=== PATIENT | female | born 1995 | race Caucasian/White ===

== ENCOUNTER 2016-10-14 15:08 | Emergency (ER) | payer OTHER ==
[~2016-10-14] VITALS: Ht 154.9 cm; Wt 77.1 kg
[~2016-10-14 15:08] MED LIST: PRD20T PO
[2016-10-14] MEDS ORDERED: MONT10TA21 PO (15:41)
[2016-10-14] MEDS ORDERED: FLUT250D2 IH (15:41)
[2016-10-14 16:15] LABS: BASOPHILS % (AUTO) 0 % (0-10); EOSINOPHILS % (AUTO) 0 % (0-10); LYMPHOCYTES # (AUTO) 0.6 X 10^3 (1.0-4.0); LYMPHOCYTES % (AUTO) 5 % (12-44); MEAN CORPUSCULAR HEMOGLOBIN 29 PG (25-34); MEAN CORPUSCULAR HGB CONC 34 G/DL (32-36); MEAN CORPUSCULAR VOLUME 84 FL (80-99); MONOCYTES # (AUTO) 0.5 X 10^3 (0.0-1.0); MONOCYTES % (AUTO) 4 % (0-12); NEUTROPHILS # (AUTO) 11.1 X 10^3 (1.8-7.8); NEUTROPHILS % (AUTO) 91 % (42-75); PLATELET COUNT 317 10^3/uL (130-400); RED BLOOD COUNT 4.84 10^6/uL (4.35-5.85); RED CELL DISTRIBUTION WIDTH 12.4 % (10.0-14.5); WHITE BLOOD COUNT 12.2 10^3/uL (4.3-11.0)
[2016-10-14] MEDS ORDERED: NS IV 1000 ML 1,000 ML IV SCH (16:15)
[2016-10-14] MEDS ORDERED: PROMETHAZINE 25 MG (PHENERGAN) SUPP PR ONE ×2 (16:15→17:45)
[2016-10-14 16:28] LABS: ALANINE AMINOTRANSFERASE 27 U/L (0-55); ALBUMIN 4.6 G/DL (3.2-4.5); ANION GAP 12 MMOL/L (5-14); ASPARTATE AMINO TRANSFERASE 24 U/L (5-34); BILIRUBIN,TOTAL 0.5 MG/DL (0.1-1.0); BLOOD UREA NITROGEN 14 MG/DL (7-18); BUN/CREATININE RATIO 16; CALCIUM 9.6 MG/DL (8.5-10.1); CARBON DIOXIDE 23 MMOL/L (21-32); CHLORIDE 106 MMOL/L (98-107); CREATININE SERUM 0.88 MG/DL (0.60-1.30); GFR ESTIMATED > 60; GLUCOSE 102 MG/DL (70-105); POTASSIUM 3.9 MMOL/L (3.6-5.0); SODIUM 141 MMOL/L (135-145); TOTAL PROTEIN 8.2 G/DL (6.4-8.2)
[2016-10-14 16:42] LABS: BAND NEUTROPHILS 6 %; BASOPHILS % (MANUAL) 0 %; EOSINOPHILS % (MANUAL) 1 %; LYMPHOCYTES % (MANUAL) 0 %; NEUTROPHILS % (MANUAL) 89 %
[2016-10-14 16:58] LABS: BILIRUBIN,URINE NEGATIVE (NEGATIVE); KETONES,URINE 4+ (NEGATIVE); LEUKOCYTE ESTERASE ,URINE 2+ (NEGATIVE); NITRITE,URINE NEGATIVE (NEGATIVE); PH,URINE 8 (5-9); PROTEIN,URINE NEGATIVE (NEGATIVE); UROBILINOGEN,URINE NORMAL (NORMAL)
--- NOTE | 2016-10-14 16:59 | ED General ---
General Chief Complaint: Abdominal/GI Problems Stated Complaint: VOMITING Nursing Triage Note: pt ambulated to room. pt states she can't keep anything down, pt has thrown up X3 since 1100 today. Source of Information: Patient Exam Limitations: No Limitations History of Present Illness Time Seen by Provider: 16:57 Initial Comments The patient is a 89-year-old white female. She reports that she began vomiting at about 1100 hours and has vomited 8 or 9 times since then. She apparently called Dr. Lynch's office and was advised to come here for IV fluids. She reports to severe headaches with Zofran. Timing/Duration: 4-6 Hours Associated Systoms: Nausea/Vomiting Allergies and Home Medications Allergies Coded Allergies: amoxicillin (Verified Allergy, Unknown, 10/14/16) clavulanic acid (Verified Allergy, Unknown, 10/14/16) dimenhydrinate (Verified Allergy, Unknown, 10/14/16) ondansetron (Verified Allergy, Unknown, 10/14/16) sulfacetamide (Verified Allergy, Unknown, 10/14/16) Home Medications Fluticasone Propionate 250 Mcg Blst.w.dev, 250 MCG IH BID, (Reported) Montelukast Sodium 10 Mg Tablet, 10 MG PO, (Reported) Constitutional: see HPI EENTM: no symptoms reported Respiratory: no symptoms reported Cardiovascular: no symptoms reported Gastrointestinal: nausea, vomiting, other (cramping) : No Past Idwbcdd-Xugrzz-Pzukqo Hx Patient Social History Alcohol Use: Denies Use Recreational Drug Use: No Smoking Status: Never a Smoker 2nd Hand Smoke Exposure: No Recent Foreign Travel: No Contact w/Someone Who Travel: No Recent Infectious Disease Expo: No Recent Hopitalizations: No Ebola Symptoms: Denies Symptoms Listed Seasonal Allergies Seasonal Allergies: No Respiratory Respiratory Disorders: Asthma Physical Exam Vital Signs Vital Sign - Last 12Hours 10/14/16 15:30 Temp 99.9 Pulse 110 Resp 20 B/P (MAP) 134/72 Pulse Ox 99 O2 Delivery Room Air Capillary Refill : General Appearance: Mild Distress Eyes: Bilateral Eye Normal Inspection HEENT: Normal ENT Inspection Neck: Normal Inspection Respiratory: Chest Non Tender, Lungs Clear, Normal Breath Sounds, No Accessory Muscle Use, No Respiratory Distress Cardiovascular: Regular Rate, Rhythm, No Edema, No Gallop, No JVD, No Murmur, Normal Peripheral Pulses Gastrointestinal: Abnormal Bowel Sounds (decreased), Other (tympany) Extremity: Normal Capillary Refill, Normal Inspection, Normal Range of Motion, Non Tender, No Calf Tenderness, No Pedal Edema Neurologic/Psychiatric: Alert, Oriented x3, No Motor/Sensory Deficits, Normal Mood/Affect Skin: Normal Color, Warm/Dry Lymphatic: No Adenopathy Progress/Results/Core Measures Results/Orders Lab Results Laboratory Tests Test 10/14/16 15:48 10/14/16 16:46 Range/Units White Blood Count 12.2 H 4.3-11.0 10^3/uL Red Blood Count 4.84 4.35-5.85 10^6/uL Hemoglobin 14.0 11.5-16.0 G/DL Hematocrit 41 35-52 % Mean Corpuscular Volume 84 80-99 FL Mean Corpuscular Hemoglobin 29 25-34 PG Mean Corpuscular Hemoglobin Concent 34 32-36 G/DL Red Cell Distribution Width 12.4 10.0-14.5 % Platelet Count 317 130-400 10^3/uL Mean Platelet Volume 10.0 7.4-10.4 FL Neutrophils (%) (Auto) 91 H 42-75 % Lymphocytes (%) (Auto) 5 L 12-44 % Monocytes (%) (Auto) 4 0-12 % Eosinophils (%) (Auto) 0 0-10 % Basophils (%) (Auto) 0 0-10 % Neutrophils # (Auto) 11.1 H 1.8-7.8 X 10^3 Lymphocytes # (Auto) 0.6 L 1.0-4.0 X 10^3 Monocytes # (Auto) 0.5 0.0-1.0 X 10^3 Eosinophils # (Auto) 0.0 0.0-0.3 10^3/uL Basophils # (Auto) 0.0 0.0-0.1 10^3/uL Neutrophils % (Manual) 89 % Lymphocytes % (Manual) 0 % Monocytes % (Manual) 4 % Eosinophils % (Manual) 1 % Basophils % (Manual) 0 % Band Neutrophils 6 % Blood Morphology Comment NORMAL Sodium Level 141 135-145 MMOL/L Potassium Level 3.9 3.6-5.0 MMOL/L Chloride Level 106 98-107 MMOL/L Carbon Dioxide Level 23 21-32 MMOL/L Anion Gap 12 5-14 MMOL/L Blood Urea Nitrogen 14 7-18 MG/DL Creatinine 0.88 0.60-1.30 MG/DL Estimat Glomerular Filtration Rate > 60 BUN/Creatinine Ratio 16 Glucose Level 102 70-105 MG/DL Calcium Level 9.6 8.5-10.1 MG/DL Total Bilirubin 0.5 0.1-1.0 MG/DL Aspartate Amino Transf (AST/SGOT) 24 5-34 U/L Alanine Aminotransferase (ALT/SGPT) 27 0-55 U/L Alkaline Phosphatase 117 40-136 U/L Total Protein 8.2 6.4-8.2 G/DL Albumin 4.6 H 3.2-4.5 G/DL Serum Test, Qualitative NEGATIVE NEGATIVE Urine Color YELLOW Urine Clarity SLIGHTLY CLOUDY Urine pH 8 5-9 Urine Specific [place] 1.015 L 1.016-1.022 Urine Protein NEGATIVE NEGATIVE Urine Glucose (UA) NEGATIVE NEGATIVE Urine Ketones 4+ H NEGATIVE Urine Nitrite NEGATIVE NEGATIVE Urine Bilirubin NEGATIVE NEGATIVE Urine Urobilinogen NORMAL NORMAL MG/DL Urine Leukocyte Esterase 2+ H NEGATIVE Urine RBC (Auto) 1+ H NEGATIVE Urine RBC 0-2 /HPF Urine WBC 2-5 /HPF Urine Squamous Epithelial Cells 5-10 /HPF Urine Crystals NONE /LPF Urine Bacteria FEW H /HPF Urine Casts NONE /LPF Urine Mucus NEGATIVE /LPF Urine Culture Indicated NO My Orders Orders - ELIAS PIPER MD Cbc With Automated Diff (10/14/16 16:06) Comprehensive Metabolic Panel (10/14/16 16:06) Ua Culture If Indicated (10/14/16 16:06) Ns Iv 1000 Ml (Sodium Chloride 0.9%) (10/14/16 16:15) Promethazine Suppository (Phenergan Supp (10/14/16 16:15) Hcg,Qualitative Serum (10/14/16 16:14) Manual Differential (10/14/16 15:48) Promethazine Suppository (Phenergan Supp (10/14/16 17:45) Medications Given in ED Current Medications Medications Dose Ordered Sig/Cheryl Route Start Time Stop Time Status Last Admin Dose Admin Promethazine HCl 25 mg ONCE ONCE AK 10/14/16 17:45 10/14/16 17:46 DC 10/14/16 17:38 25 MG Vital Signs/I&O Vital Sign - Last 12Hours 10/14/16 10/14/16 15:30 15:30 Temp 99.9 99.9 Pulse 110 110 Resp 20 20 B/P (MAP) 134/72 134/72 Pulse Ox 99 O2 Delivery Room Air Room Air Departure Communication Progress Notes The patient is nearly done with the second liter of fluid. She has agreed to attempt the Phenergan suppository as that is her only option for antinauseant at home with her Zofran sensitivity. Impression Impression: Primary Impression: acute nausea and vomiting Disposition: HOME, SELF-CARE Condition: Improved Departure-Patient Inst. Decision time for Depature: 17:35 Referrals: ADRIENNE LYNCH MD (PCP/Family) Primary Care Physician Patient Instructions: Nausea and Vomiting, Child (DC) Add. Discharge Instructions: All discharge instructions reviewed with patient and/or family. Voiced understanding. Gatorade or 7-Up in small increments frequently to keep hydration. If no vomiting in 24 hours you may begin to add foodstuff beginning with soda crackers and chicken noodle soup Scripts Promethazine HCl (Phenergan) 25 Mg Supp.rect 25 MG RC EVERY 4 HOURS Y for NAUSEA AND VOMITING, #6 SUPP.RECT Prov: ELIAS PIPER MD 10/14/16 ELIAS PIPER MD Oct 14, 2016 16:59
[2016-10-14] MEDS ORDERED: PROM25SU43 RC (18:14)
== END 2016-10-14 18:54 | disposition home or self-care (01) ==
LOC: EDUNIT# 15:08 → ER 15:11
DX: R11.2 Nausea with vomiting, unspecified (principal); J45.909 Unspecified asthma, uncomplicated
CPT/HCPCS: 36415; 80053; 81000; 84703; 85007; 85027

== ENCOUNTER 2016-11-15 21:15 | Emergency (ER) | payer OTHER ==
[~2016-11-15] VITALS: Ht 154.9 cm; Wt 77.1 kg
[~2016-11-15 21:15] MED LIST changes: +FLUT250D2 IH; +MONT10TA21 PO; +PROM25SU43 RC
[2016-11-15] MEDS ORDERED: fentaNYL INJECTION 100 MCG/2 ML AMP IM STA (21:28)
--- NOTE | 2016-11-15 21:28 | ED Back Pain ---
General Chief Complaint: Back Problems Stated Complaint: BACK PAIN Source of Information: Patient, Family Exam Limitations: No Limitations (mom) History of Present Illness Time Seen by Provider: 21:24 Initial Comments Patient presents by private conveyance with pain that erupted about 20 minutes prior to arrival in her middle low back that she's never had before. She has had nausea and vomiting twice since then. She has no history of trauma car wrecks falls. She states she's had no incontinence and no weakness or numbness. She has no radiation of the pain. She does not have fevers or chills however earlier today she felt she had a hard time getting a urine stream started. She denies dysuria or discharge. She does have asthma and uses Xopenex for this. However she states she is not sexually active with men. She prefers women. She is not on control. Allergies and Home Medications Allergies Coded Allergies: amoxicillin (Verified Allergy, Unknown, 10/14/16) clavulanic acid (Verified Allergy, Unknown, 10/14/16) dimenhydrinate (Verified Allergy, Unknown, 10/14/16) ondansetron (Verified Allergy, Unknown, 10/14/16) sulfacetamide (Verified Allergy, Unknown, 10/14/16) Home Medications Fluticasone Propionate 250 Mcg Blst.w.dev, 250 MCG IH BID, (Reported) Montelukast Sodium 10 Mg Tablet, 10 MG PO, (Reported) Constitutional: see HPI, No chills, No fever, No malaise Respiratory: No cough, No short of breath Cardiovascular: No chest pain, No edema Gastrointestinal: No abdominal pain, other (right flank pain) Genitourinary: No dysuria, hesitancy, No incontinence Musculoskeletal: see HPI, back pain Skin: No pruritus, No rash Past Kkguomh-Mvxidp-Kaiafr Hx Patient Social History Alcohol Use: Denies Use Recreational Drug Use: No Smoking Status: Never a Smoker 2nd Hand Smoke Exposure: No Recent Foreign Travel: No Contact w/Someone Who Travel: No Recent Hopitalizations: No Seasonal Allergies Seasonal Allergies: No Respiratory Respiratory Disorders: Asthma Physical Exam Vital Signs Vital Sign - Last 12Hours 11/15/16 21:20 Pulse 54 Resp 20 B/P (MAP) 124/74 Pulse Ox 97 O2 Delivery Room Air Capillary Refill : General Appearance: WD/WN, Mild Distress HEENT: PERRL/EOMI, Pharynx Normal Neck: Full Range of Motion, Supple Cardiovascular: Regular Rate, Rhythm, No Edema, Normal Peripheral Pulses Respiratory: Chest Non Tender, Lungs Clear, Normal Breath Sounds Gastrointestinal: Normal Bowel Sounds, Non Tender, Soft Back: Normal Inspection, No Vertebral Tenderness, CVA Tenderness (R) ( especially to percussion) Extremity: Normal Capillary Refill, No Pedal Edema Neurologic/Psychiatric: Alert, Oriented x3 Skin: Normal Color, Warm/Dry Progress/Results/Core Measures Results/Orders Lab Results Laboratory Tests Test 11/15/16 21:46 Range/Units Urine Color YELLOW Urine Clarity SLIGHTLY CLOUDY Urine pH 5 5-9 Urine Specific [place] 1.025 H 1.016-1.022 Urine Protein 1+ H NEGATIVE Urine Glucose (UA) NEGATIVE NEGATIVE Urine Ketones 4+ H NEGATIVE Urine Nitrite NEGATIVE NEGATIVE Urine Bilirubin NEGATIVE NEGATIVE Urine Urobilinogen NORMAL NORMAL MG/DL Urine Leukocyte Esterase 3+ H NEGATIVE Urine RBC (Auto) 5+ H NEGATIVE Urine RBC 10-25 H /HPF Urine WBC 5-10 H /HPF Urine Squamous Epithelial Cells 2-5 /HPF Urine Crystals NONE /LPF Urine Bacteria FEW H /HPF Urine Casts NONE /LPF Urine Mucus NEGATIVE /LPF Urine Culture Indicated YES Urine Test NEGATIVE NEGATIVE My Orders Orders - PEARL CLARK Hcg,Qualitative Urine (11/15/16 21:28) Ua Culture If Indicated (11/15/16 21:28) Fentanyl Injection (Sublimaze Injection (11/15/16 21:28) Promethazine Tablet (Phenergan Tablet) (11/15/16 21:30) Ct Abd/Pelvis Wo(Kidney Stone) (11/15/16 21:35) Saline Lock/Iv-Start (11/15/16 21:35) Ns Iv 1000 Ml (Sodium Chloride 0.9%) (11/15/16 21:35) Ketorolac Injection (Toradol Injection) (11/15/16 21:47) Urine Culture (11/15/16 21:46) Medications Given in ED Current Medications Medications Dose Ordered Sig/Cheryl Route Start Time Stop Time Status Last Admin Dose Admin Promethazine HCl 25 mg ONCE ONCE PO 11/15/16 21:30 11/15/16 21:49 DC 11/15/16 21:47 25 MG Sodium Chloride 1,000 ml @ 0 mls/hr Q0M ONCE IV 11/15/16 21:35 11/15/16 21:49 DC 11/15/16 21:46 0 MLS/HR Vital Signs/I&O Vital Sign - Last 12Hours 11/15/16 21:20 Pulse 54 Resp 20 B/P (MAP) 124/74 Pulse Ox 97 O2 Delivery Room Air Progress Note : Time: 21:38 Progress Note History and presentation consistent with potential kidney stone. We'll get some urine from her and check an hCG. Then we will get a CT without contrast. Treat her pain and nausea at this time. Diagnostic Imaging Diagonstic Imaging: CT Plain Films/CT/US/NM/MRI: abdomen, pelvis (W/O) Comments Right UreteroVesical Jxn stone. 2.8mm Reviewed: Reviewed by Me Departure Impression Impression: Primary Impression: Kidney stone on right side Disposition: 01 HOME, SELF-CARE Condition: Improved Departure-Patient Inst. Decision time for Depature: 22:32 Referrals: ADRIENNE JEWELL MD (PCP) Primary Care Physician JOANNA CABRERA APRN (Family) Primary Care Physician Patient Instructions: Kidney Stones (DC) Add. Discharge Instructions: You have a 2.8 mm stone in the right junction between the bladder and ureter from the kidney. This stone will probably pass on its own we will give you some medicines to help with this. He should take Flomax tonight and then every night until the past the stone. Please strain your urine every time he urinated if you catch the stone take it your primary care physician and they can help figure out what causes you can try and avoid having this in the future. If you' re having pain he should take a Tylenol 500 mg or ibuprofen 800 mg every 8 hours. If this is not controlling her pain you can also use heat and neck she her drinking lots of fluids. If her pain still persists then there are some hydrocodone that is been sent to the pharmacy for you to use. If you use hydrocodone this may cause constipation and drowsiness so do not drive and be sure to use some kind of laxative such as MiraLAX every day that you're using the hydrocodone. The pain may persist for several days or even a week after the passing of the stone. Sometimes the stoma break Into a fine sand and you will not see it pass but if your symptoms resolved rest assured it is probably gone. If your stone does not pass after 3 or more days you can follow up with your primary care physician or you may follow-up with the local urologist Dr. Meneses [phone]. If you're having high fevers, nausea and vomiting or other worrisome symptoms you should return to the ER immediately. I will send nausea medicine to the pharmacy for you. You will also be put on antibiotics for the next 7 days to treat a urinary tract infection. All discharge instructions reviewed with patient and/or family. Voiced understanding. Scripts Tamsulosin HCl (Flomax) 0.4 Mg Cap 0.4 MG PO HS for 14 Days, #14 CAP 0 Refills Prov: PEARL CLARK 11/15/16 Hydrocodone/Acetaminophen (Hydrocodon -Acetaminophen 5-325) 1 Each Tablet 1 EACH PO Q6H Y for PAIN-BREAKTHROUGH, #20 TAB 0 Refills Prov: PEARL CLARK 11/15/16 Cephalexin (Keflex) 500 Mg Capsule 500 MG PO BID for 7 Days, #14 CAP 0 Refills Prov: PEARL CLARK 11/15/16 Promethazine HCl (Promethazine Tablet) 25 Mg Tablet 25 MG PO Q8H Y for NAUSEA/VOMITING, #14 TAB 0 Refills Prov: PEARL CLARK 11/15/16 Copy Copies To 1: ADRIENNE JEWELL MD, TITUS J Nov 15, 2016 21:28
[2016-11-15] MEDS ORDERED: PROMETHAZINE 25 MG (PHENERGAN) TAB PO ONE (21:30)
[2016-11-15] MEDS ORDERED: NS IV 1000 ML 1,000 ML IV ONE (21:35)
[2016-11-15] MEDS ORDERED: KETOROLAC 30 MG/ML VIAL IVP STA (21:47)
[2016-11-15 21:55] LABS: BILIRUBIN,URINE NEGATIVE (NEGATIVE); KETONES,URINE 4+ (NEGATIVE); LEUKOCYTE ESTERASE ,URINE 3+ (NEGATIVE); NITRITE,URINE NEGATIVE (NEGATIVE); PH,URINE 5 (5-9); PROTEIN,URINE 1+ (NEGATIVE); UROBILINOGEN,URINE NORMAL (NORMAL)
[2016-11-15] MEDS ORDERED: HYDR-3812 PO (22:41)
[2016-11-15] MEDS ORDERED: CEPH-507 PO (22:41)
[2016-11-15] MEDS ORDERED: TAMS0.4C98 PO (22:41)
[2016-11-15] MEDS ORDERED: PROM25TA14 PO (22:41)
[2016-11-15] MEDS ORDERED: ALFUZOSIN HCL 10 MG TAB (UROXATRAL) PO ONE (22:44)
[2016-11-15] MEDS ORDERED: RX-HYDROCODONE/APAP 5/325 MG #4 TAB PK PO PRN (22:45)
[2016-11-15] MEDS ORDERED: CEPHALEXIN 250 MG (KEFLEX) CAP PO ONE (22:45)
[2016-11-15] MEDS ORDERED: TAMSULOSIN 0.4 MG (FLOMAX) CAP PO ONE (22:45)
[2016-11-15] MEDS ORDERED: ALFUZOSIN HCL 10 MG TAB (UROXATRAL) PO SCH (23:00)
--- NOTE | 2016-11-16 09:31 | Diagnostic Imaging Report ---
PROCEDURE: CT urinary tract, rule out kidney stone. TECHNIQUE: Multiple contiguous axial images were obtained through the abdomen and pelvis without the use of intravenous contrast. INDICATION: Right lower quadrant abdominal pain. Comparison is made with prior examination from 12/21/12. FINDINGS: The heart size is normal. The lung bases are clear. The liver is normal in size without focal lesions. The gallbladder is unremarkable. There is no biliary ductal dilatation. The spleen is normal. The pancreas and adrenal glands are unremarkable. There is mild right hydronephrosis and hydroureter secondary to a 2.5 mm stone in the region of the right UVJ. The left kidney is normal. The aorta is nonaneurysmal. The bowel gas pattern is nonspecific. There is no free air. There is no ascites. There are no focal inflammatory changes. There is no pelvic mass, adenopathy or free fluid. The osseous structures are unremarkable. IMPRESSION: Mild right hydronephrosis and hydroureter secondary to a 2.5 mm stone in the region of the right UVJ. Dictated by: Dictated on workstation # [id number]
--- OUTSIDE RECORDS SUMMARY | 2016-11-19 08:18 | XMS REPORT | Continuity of Care Document ---
Author Author [facility] Organization [facility] Address Unknown Phone Unavailable Care Team Providers Care Psychiatric Np Name Role Phone PCP Unavailable Source Comments Some departments are not documenting in the electronic medical record. If you do not see the information that you expected, contact Release of Information in the Health Information Management department at [phone] for further assistance in locating additional records.[facility] Active Allergies and Adverse Reactions Allergen Noted Date Severity Reactions Comments Augmentin 03/17/2013 RASH Dramamine Ii 03/17/2013 RASH Zofran 03/17/2013 HEADACHE Current Medications Prescription Sig. Disp. Refills Start End Date Status Date PREDNISONE PO Take by mouth. Active HYDROcodone-acetaminophen Take 1-2 Tabs by mouth Active (VICODIN) 5-500 mg tablet every 4 hours as needed. norgestimate-ethinyl Take 1 Tab by mouth 84 Tab 3 03/17/20 Active estradiol(+) daily. 13 (ORTHO-CYCLEN (28); SPRINTEC (28); MONONESSA (28); PREVIFEM) tablet Active Problems Problem Noted Date Functional ovarian cysts 03/17/2013 Polycystic ovarian syndrome 03/17/2013 Social History Tobacco Use Types Packs/Day Years Used Date Never Smoker Last Filed Vital Signs Vital Sign Reading Time Taken Blood Pressure 108/66 03/17/2013 10:18 AM RIB CUTTER Pulse - - Temperature - - Respiratory Rate - - Height 1.549 m (5' 1") 03/17/2013 10:18 AM RIB CUTTER Weight 77.565 kg (171 lb) 03/17/2013 10:18 AM RIB CUTTER Body Mass Index 32.33 03/17/2013 10:18 AM RIB CUTTER Oxygen Saturation - - Plan of Care Health Maintenance Due Date Last Done Comments Physical (Comprehensive) 12/07/2003 Exam Hpv Vaccines (#1) 12/07/2007 Pertussis Vaccine 12/07/2007 Tetanus Vaccine 2013 Influenza Vaccine 01/10/2017 Results from Last 3 Months Not on file
--- OUTSIDE RECORDS SUMMARY | 2016-11-19 08:19 | XMS REPORT | Continuity of Care Document ---
Author Author [facility] Address Unknown Phone Unavailable Allergies Active Description Code Type Severity Reaction Onset Reported/Identified Relationship to Patient Clinical Status Yes Augmentin Drug Allergy N/A N/A 08/22/2008 Yes Dramamine Drug Allergy N/A N/A 08/22/2008 Yes Augmentin Drug Allergy 08/22/2008 Yes Dramamine Drug Allergy 08/22/2008 Yes metformin Drug Allergy N/A N/A 02/22/2013 Yes amoxicillin [id number] Drug Allergy Unknown N/A 10/14/2016 Yes clavulanic acid [id number] Drug Allergy Unknown N/A 10/14/2016 Yes dimenhydrinate [id number] Drug Allergy Unknown N/A 10/14/2016 Yes ondansetron [id number] Drug Allergy Unknown N/A 10/14/2016 Yes sulfacetamide [id number] Drug Allergy Unknown N/A 10/14/2016 Medications Problems Date Dx Coded Attending Type Code Diagnosis Diagnosed By 08/20/2008 V06.5 DT, TETANUS-DIPHTHERIA [Td] 08/20/2008 V06.5 DT, TETANUS-DIPHTHERIA [Td] 08/20/2008 ROMERO BERNARD, CODEY A V06.5 DT, TETANUS-DIPHTHERIA [Td] 08/20/2008 ROMERO BERNARD, CODEY A V06.5 DT, TETANUS-DIPHTHERIA [Td] 08/20/2008 CHANDLER KAPLAN DO V06.5 DT, TETANUS-DIPHTHERIA [Td] 08/20/2008 ROMERO BERNARD, CODEY A V06.5 DT, TETANUS-DIPHTHERIA [Td] 08/20/2008 ROMERO BERNARD CODEY A V06.5 DT, TETANUS-DIPHTHERIA [Td] 08/20/2008 ROMERO BERNARD, CODEY A V06.5 DT, TETANUS-DIPHTHERIA [Td] 08/20/2008 CHANDLER KAPLAN DO V06.5 DT, TETANUS-DIPHTHERIA [Td] 08/22/2008 E906.3 INJURY CAUSED BY ANIMAL RODENT BITE 08/22/2008 E906.3 INJURY CAUSED BY ANIMAL RODENT BITE 08/22/2008 ROMERO TAYLORCODEY Dinero A E906.3 INJURY CAUSED BY ANIMAL RODENT BITE 08/22/2008 ROMERO TAYLORN, CODEY A E906.3 INJURY CAUSED BY ANIMAL RODENT BITE 08/22/2008 CHANDLER KAPLAN DO E906.3 INJURY CAUSED BY ANIMAL RODENT BITE 08/22/2008 ROMERO TAYLORN, CODEY A E906.3 INJURY CAUSED BY ANIMAL RODENT BITE 08/22/2008 ROMERO TAYLORN, CODEY A E906.3 INJURY CAUSED BY ANIMAL RODENT BITE 08/22/2008 ROMERO TAYLORN, CODEY A E906.3 INJURY CAUSED BY ANIMAL RODENT BITE 08/22/2008 CHANDLER KAPLAN DO E906.3 INJURY CAUSED BY ANIMAL RODENT BITE 10/29/2008 V05.8 GARDASIL, SHINGLES, OTHER SPECIFIED DISEASE 10/29/2008 V05.8 GARDASIL, SHINGLES, OTHER SPECIFIED DISEASE 10/29/2008 CATHYCODEY MOREL APRN A V05.8 GARDASIL, SHINGLES, OTHER SPECIFIED DISEASE 10/29/2008 CATHYCODEY MOREL APRN A V05.8 GARDASIL, SHINGLES, OTHER SPECIFIED DISEASE 10/29/2008 CHANDLER KAPLAN DO V05.8 GARDASIL, SHINGLES, OTHER SPECIFIED DISEASE 10/29/2008 CATHYCODEY MOREL APRN A V05.8 GARDASIL, SHINGLES, OTHER SPECIFIED DISEASE 10/29/2008 CATHYCODEY MOREL APRN A V05.8 GARDASIL, SHINGLES, OTHER SPECIFIED DISEASE 10/29/2008 ROMERO BERNARD, CODEY A V05.8 GARDASIL, SHINGLES, OTHER SPECIFIED DISEASE 10/29/2008 CHANDLER KAPLAN DO V05.8 GARDASIL, SHINGLES, OTHER SPECIFIED DISEASE 12/21/2008 482.89 ATYPICAL MYCOBACTERIAL PNEUMONIA 12/21/2008 482.89 ATYPICAL MYCOBACTERIAL PNEUMONIA 12/21/2008 VIOLA JASSO APRNYL A 482.89 ATYPICAL MYCOBACTERIAL PNEUMONIA 12/21/2008 VIOLA JASSO APRNYL A 482.89 ATYPICAL MYCOBACTERIAL PNEUMONIA 12/21/2008 CHANDLER KAPLAN DO 482.89 ATYPICAL MYCOBACTERIAL PNEUMONIA 12/21/2008 RAJOTTE CHIEF BUSINESS OFFICER, CODEY A 482.89 ATYPICAL MYCOBACTERIAL PNEUMONIA 12/21/2008 RAJOTTE CHIEF BUSINESS OFFICER, CODEY A 482.89 ATYPICAL MYCOBACTERIAL PNEUMONIA 12/21/2008 RAJOTTE CHIEF BUSINESS OFFICER, CODEY A 482.89 ATYPICAL MYCOBACTERIAL PNEUMONIA 12/21/2008 CHANDLER KAPLAN DO 482.89 ATYPICAL MYCOBACTERIAL PNEUMONIA 01/17/2009 V03.82 PCV7 PCV23, STREPTOCOCCUS PNEUMONIAE [PNEUMOCOCCUS] 01/17/2009 V03.82 PCV7 PCV23, STREPTOCOCCUS PNEUMONIAE [PNEUMOCOCCUS] 01/17/2009 JERZYE MARCO ANTONIO CODEY A V03.82 PCV7 PCV23, STREPTOCOCCUS PNEUMONIAE [PNEUMOCOCCUS] 01/17/2009 JERZYE MARCO ANTONIO CODEY A V03.82 PCV7 PCV23, STREPTOCOCCUS PNEUMONIAE [PNEUMOCOCCUS] 01/17/2009 CHANDLER KAPLAN DO V03.82 PCV7 PCV23, STREPTOCOCCUS PNEUMONIAE [ PNEUMOCOCCUS] 01/17/2009 JERZYE MARCO ANTONIO CODEY A V03.82 PCV7 PCV23, STREPTOCOCCUS PNEUMONIAE [PNEUMOCOCCUS] 01/17/2009 CATHYOTTE CHIEF BUSINESS OFFICER, CODEY A V03.82 PCV7 PCV23, STREPTOCOCCUS PNEUMONIAE [PNEUMOCOCCUS] 01/17/2009 JERZYE MARCO ANTONIO CODEY A V03.82 PCV7 PCV23, STREPTOCOCCUS PNEUMONIAE [PNEUMOCOCCUS] 01/17/2009 CHANDLER KAPLAN DO V03.82 PCV7 PCV23, STREPTOCOCCUS PNEUMONIAE [ PNEUMOCOCCUS] 01/24/2009 493.90 ASTHMA 01/24/2009 493.90 ASTHMA 01/24/2009 RAJASAFE CHIEF BUSINESS OFFICER, CODEY A 493.90 ASTHMA 01/24/2009 RAJOTTE CHIEF BUSINESS OFFICER, CODEY A 493.90 ASTHMA 01/24/2009 CHANDLER KAPLAN DO 493.90 ASTHMA 01/24/2009 RAJOTTE CHIEF BUSINESS OFFICER, CODEY A 493.90 ASTHMA 01/24/2009 RAJOTTE CHIEF BUSINESS OFFICER, CODEY A 493.90 ASTHMA 01/24/2009 RAJOTTE CHIEF BUSINESS OFFICER, CODEY A 493.90 ASTHMA 01/24/2009 CHANDLER KAPLAN DO 493.90 ASTHMA 04/14/2009 110.5 TINEA CORPORIS 04/14/2009 465.9 UPPER RESPIRATORY INFECTION 04/14/2009 786.2 COUGH 04/14/2009 110.5 TINEA CORPORIS 04/14/2009 465.9 UPPER RESPIRATORY INFECTION 04/14/2009 786.2 COUGH 04/14/2009 RAJOTTE CHIEF BUSINESS OFFICER, CODEY A 110.5 TINEA CORPORIS 04/14/2009 RAJOTTE CHIEF BUSINESS OFFICER, CODEY A 465.9 UPPER RESPIRATORY INFECTION 04/14/2009 RAJOTTE CHIEF BUSINESS OFFICER, CODEY A 786.2 COUGH 04/14/2009 RAJOTTE CHIEF BUSINESS OFFICER, CODEY A 110.5 TINEA CORPORIS 04/14/2009 RAJOTTE CHIEF BUSINESS OFFICER, CODEY A 465.9 UPPER RESPIRATORY INFECTION 04/14/2009 RAJOTTE CHIEF BUSINESS OFFICER, CODEY A 786.2 COUGH 04/14/2009 KAPLAN DO, CHANDLER K 110.5 TINEA CORPORIS 04/14/2009 KAPLAN DO, CHANDLER K 465.9 UPPER RESPIRATORY INFECTION 04/14/2009 KAPLAN DO, CHANDLER K 786.2 COUGH 04/14/2009 RAJOTTE CHIEF BUSINESS OFFICER, CODEY A 110.5 TINEA CORPORIS 04/14/2009 RAJOTTE CHIEF BUSINESS OFFICER, CODEY A 465.9 UPPER RESPIRATORY INFECTION 04/14/2009 RAJOTTE CHIEF BUSINESS OFFICER, CODEY A 786.2 COUGH 04/14/2009 RAJOTTE CHIEF BUSINESS OFFICER, CODEY A 110.5 TINEA CORPORIS 04/14/2009 RAJOTTE CHIEF BUSINESS OFFICER, CODEY A 465.9 UPPER RESPIRATORY INFECTION 04/14/2009 RAJOTTE CHIEF BUSINESS OFFICER, CODEY A 786.2 COUGH 04/14/2009 RAJOTTE CHIEF BUSINESS OFFICER, CODEY A 110.5 TINEA CORPORIS 04/14/2009 RAJOTTE CHIEF BUSINESS OFFICER, CODEY A 465.9 UPPER RESPIRATORY INFECTION 04/14/2009 RAJOTTE CHIEF BUSINESS OFFICER, CODEY A 786.2 COUGH 04/14/2009 KAPLAN DO, CHANDLER K 110.5 TINEA CORPORIS 04/14/2009 KAPLAN DO, CHANDLER K 465.9 UPPER RESPIRATORY INFECTION 04/14/2009 KAPLAN DO, CHANDLER K 786.2 COUGH 06/16/2009 477.9 RHINITIS 06/16/2009 477.9 RHINITIS 06/16/2009 RAJOTTE CHIEF BUSINESS OFFICER, CODEY A 477.9 RHINITIS 06/16/2009 RAJOTTE CHIEF BUSINESS OFFICER, CODEY A 477.9 RHINITIS 06/16/2009 KAPLAN DO, CHANDLER K 477.9 RHINITIS 06/16/2009 RAJOTTE CHIEF BUSINESS OFFICER, CODEY A 477.9 RHINITIS 06/16/2009 RAJOTTE CHIEF BUSINESS OFFICER, CODEY A 477.9 RHINITIS 06/16/2009 RAJOTTE CHIEF BUSINESS OFFICER, CODEY A 477.9 RHINITIS 06/16/2009 KAPLAN DO, CHANDLER K 477.9 RHINITIS 08/05/2009 723.1 CERVICALGIA 08/05/2009 784.0 HEADACHE 08/05/2009 723.1 CERVICALGIA 08/05/2009 784.0 HEADACHE 08/05/2009 RAJOTTE CHIEF BUSINESS OFFICER, CODEY A 723.1 CERVICALGIA 08/05/2009 RAJOTTE CHIEF BUSINESS OFFICER, CODEY A 784.0 HEADACHE 08/05/2009 RAJOTTE CHIEF BUSINESS OFFICER, CODEY A 723.1 CERVICALGIA 08/05/2009 RAJOTTE CHIEF BUSINESS OFFICER, CODEY A 784.0 HEADACHE 08/05/2009 KAPLAN DOCHANDLER K 723.1 CERVICALGIA 08/05/2009 ROSAURA DOMARIALUISAA K 784.0 HEADACHE 08/05/2009 RAJOTTE CHIEF BUSINESS OFFICER, CODEY A 723.1 CERVICALGIA 08/05/2009 RAJOTTE CHIEF BUSINESS OFFICER, CODEY A 784.0 HEADACHE 08/05/2009 RAJOTTE CHIEF BUSINESS OFFICER, CODEY A 723.1 CERVICALGIA 08/05/2009 RAJOTTE CHIEF BUSINESS OFFICER, CODEY A 784.0 HEADACHE 08/05/2009 RAJOTTE CHIEF BUSINESS OFFICER, CODEY A 723.1 CERVICALGIA 08/05/2009 RAJOTTE CHIEF BUSINESS OFFICER, CODEY A 784.0 HEADACHE 08/05/2009 ROSAURA DOCHANDLER K 723.1 CERVICALGIA 08/05/2009 KAPLAN DOMARIALUISAA K 784.0 HEADACHE 12/01/2009 V70.3 SPORTS/SCHOOL EXAM 12/01/2009 V70.3 SPORTS/SCHOOL EXAM 12/01/2009 RAJOTTE CHIEF BUSINESS OFFICER, CODEY A V70.3 SPORTS/SCHOOL EXAM 12/01/2009 RAJOTTE CHIEF BUSINESS OFFICER, CODEY A V70.3 SPORTS/SCHOOL EXAM 12/01/2009 KAPLAN DOMARIALUISAA K V70.3 SPORTS/SCHOOL EXAM 12/01/2009 RAJOTTE CHIEF BUSINESS OFFICER, CODEY A V70.3 SPORTS/SCHOOL EXAM 12/01/2009 RAJOTTE CHIEF BUSINESS OFFICER, CODEY A V70.3 SPORTS/SCHOOL EXAM 12/01/2009 CATHYOTTE CHIEF BUSINESS OFFICER, CODEY A V70.3 SPORTS/SCHOOL EXAM 12/01/2009 CHANDLER KAPLAN DO V70.3 SPORTS/SCHOOL EXAM 02/02/2010 462 ACUTE PHARYNGITIS 02/02/2010 462 ACUTE PHARYNGITIS 02/02/2010 RAJOTTE CHIEF BUSINESS OFFICER, CODEY A 462 ACUTE PHARYNGITIS 02/02/2010 RAJOTTE CHIEF BUSINESS OFFICER, CODEY A 462 ACUTE PHARYNGITIS 02/02/2010 CHANDLER KAPLAN DO 462 ACUTE PHARYNGITIS 02/02/2010 RAJOTTE CHIEF BUSINESS OFFICER, CODEY A 462 ACUTE PHARYNGITIS 02/02/2010 RAJOTTE CHIEF BUSINESS OFFICER, CODEY A 462 ACUTE PHARYNGITIS 02/02/2010 RAJOTTE CHIEF BUSINESS OFFICER, CODEY A 462 ACUTE PHARYNGITIS 02/02/2010 CHANDLER KAPLAN DO 462 ACUTE PHARYNGITIS 08/23/2010 780.4 DIZZINESS AND GIDDINESS 08/23/2010 780.4 DIZZINESS AND GIDDINESS 08/23/2010 RAJOTTE CHIEF BUSINESS OFFICER, CODEY A 780.4 DIZZINESS AND GIDDINESS 08/23/2010 RAJOTTE CHIEF BUSINESS OFFICER, CODEY A 780.4 DIZZINESS AND GIDDINESS 08/23/2010 CHANDLER KAPLAN DO 780.4 DIZZINESS AND GIDDINESS 08/23/2010 RAJOTTE CHIEF BUSINESS OFFICER, CODEY A 780.4 DIZZINESS AND GIDDINESS 08/23/2010 RAJOTTE CHIEF BUSINESS OFFICER, CODEY A 780.4 DIZZINESS AND GIDDINESS 08/23/2010 RAJOTTE CHIEF BUSINESS OFFICER, CODEY A 780.4 DIZZINESS AND GIDDINESS 08/23/2010 CHANDLER KAPLAN DO 780.4 DIZZINESS AND GIDDINESS 02/07/2011 278.00 OBESITY 02/07/2011 278.00 OBESITY 02/07/2011 RAJOTTE CHIEF BUSINESS OFFICER, CODEY A 278.00 OBESITY 02/07/2011 RAJOTTE CHIEF BUSINESS OFFICER, CODEY A 278.00 OBESITY 02/07/2011 CHANDLER KAPLAN DO 278.00 OBESITY 02/07/2011 RAJOTTE CHIEF BUSINESS OFFICER, CODEY A 278.00 OBESITY 02/07/2011 RAJOTTE CHIEF BUSINESS OFFICER, CODEY A 278.00 OBESITY 02/07/2011 RAJOTTE CHIEF BUSINESS OFFICER, CODEY A 278.00 OBESITY 02/07/2011 KAPLAN DO, CHANDLER K 278.00 OBESITY 03/14/2011 626.4 IRREGULAR MENSTRUAL CYCLE 03/14/2011 V20.2 WELL CHILD 03/14/2011 626.4 IRREGULAR MENSTRUAL CYCLE 03/14/2011 V20.2 WELL CHILD 03/14/2011 RAJOTTE CHIEF BUSINESS OFFICER, CODEY A 626.4 IRREGULAR MENSTRUAL CYCLE 03/14/2011 RAJOTTE CHIEF BUSINESS OFFICER, CODEY A V20.2 WELL CHILD 03/14/2011 RAJOTTE CHIEF BUSINESS OFFICER, CODEY A 626.4 IRREGULAR MENSTRUAL CYCLE 03/14/2011 RAJOTTE CHIEF BUSINESS OFFICER, CODEY A V20.2 WELL CHILD 03/14/2011 KAPLAN DO, CHANDLER K 626.4 IRREGULAR MENSTRUAL CYCLE 03/14/2011 KAPLAN DO, CHANDLER K V20.2 WELL CHILD 03/14/2011 RAJOTTE CHIEF BUSINESS OFFICER, CODEY A 626.4 IRREGULAR MENSTRUAL CYCLE 03/14/2011 RAJOTTE CHIEF BUSINESS OFFICER, CODEY A V20.2 WELL CHILD 03/14/2011 RAJOTTE CHIEF BUSINESS OFFICER, CODEY A 626.4 IRREGULAR MENSTRUAL CYCLE 03/14/2011 RAJOTTE CHIEF BUSINESS OFFICER, CODEY A V20.2 WELL CHILD 03/14/2011 RAJOTTE CHIEF BUSINESS OFFICER, CODEY A 626.4 IRREGULAR MENSTRUAL CYCLE 03/14/2011 RAJOTTE CHIEF BUSINESS OFFICER, CODEY A V20.2 WELL CHILD 03/14/2011 KAPLAN DO, CHANDLER K 626.4 IRREGULAR MENSTRUAL CYCLE 03/14/2011 KAPLAN DO, CHANDLER K V20.2 WELL CHILD 04/01/2011 272.4 HYPERLIPIDEMIA 04/01/2011 272.4 HYPERLIPIDEMIA 04/01/2011 RAJOTTE CHIEF BUSINESS OFFICER, CODEY A 272.4 HYPERLIPIDEMIA 04/01/2011 RAJOTTE CHIEF BUSINESS OFFICER, CODEY A 272.4 HYPERLIPIDEMIA 04/01/2011 KAPLAN DO, CHANDLER K 272.4 HYPERLIPIDEMIA 04/01/2011 RAJOTTE CHIEF BUSINESS OFFICER, CODEY A 272.4 HYPERLIPIDEMIA 04/01/2011 RAJOTTE CHIEF BUSINESS OFFICER, CODEY A 272.4 HYPERLIPIDEMIA 04/01/2011 RAJOTTE CHIEF BUSINESS OFFICER, CODEY A 272.4 HYPERLIPIDEMIA 04/01/2011 KAPLAN DO CHANDLER K 272.4 HYPERLIPIDEMIA 05/24/2011 724.5 BACKACHE UNSPECIFIED 05/24/2011 780.79 MALAISE AND FATIGUE 05/24/2011 787.02 NAUSEA ALONE 05/24/2011 724.5 BACKACHE UNSPECIFIED 05/24/2011 780.79 MALAISE AND FATIGUE 05/24/2011 787.02 NAUSEA ALONE 05/24/2011 ROMERO MARCO ANTONIO CODEY A 724.5 BACKACHE UNSPECIFIED 05/24/2011 JERZYGokul TAYLORBar CODEY A 780.79 MALAISE AND FATIGUE 05/24/2011 JERZYGokul TAYLORBar CODEY A 787.02 NAUSEA ALONE 05/24/2011 CATHYMARIA TERESA TAYLORBar CODEY A 724.5 BACKACHE UNSPECIFIED 05/24/2011 ROMERO BERNARD CODEY A 780.79 MALAISE AND FATIGUE 05/24/2011 ROMERO BERNARD CODEY A 787.02 NAUSEA ALONE 05/24/2011 KAPLAN DO, CHANDLER K 724.5 BACKACHE UNSPECIFIED 05/24/2011 KAPLAN DO CHANDLER K 780.79 MALAISE AND FATIGUE 05/24/2011 KAPLAN DO, CHANDLER K 787.02 NAUSEA ALONE 05/24/2011 JERZYGokul BERNARD CODEY A 724.5 BACKACHE UNSPECIFIED 05/24/2011 ROMERO BERNARD CODEY A 780.79 MALAISE AND FATIGUE 05/24/2011 ROMERO BERNARD CODEY A 787.02 NAUSEA ALONE 05/24/2011 ROMERO BERNARD CODEY A 724.5 BACKACHE UNSPECIFIED 05/24/2011 ROMERO BERNARD CODEY A 780.79 MALAISE AND FATIGUE 05/24/2011 ROMERO BERNARD CODEY A 787.02 NAUSEA ALONE 05/24/2011 ROMERO BERNARD CODEY A 724.5 BACKACHE UNSPECIFIED 05/24/2011 ROMERO BERNARD CODEY A 780.79 MALAISE AND FATIGUE 05/24/2011 ROMERO BERNARD CODEY A 787.02 NAUSEA ALONE 05/24/2011 KAPLAN DO, CHANDLER K 724.5 BACKACHE UNSPECIFIED 05/24/2011 KAPLAN DO, CHANDLER K 780.79 MALAISE AND FATIGUE 05/24/2011 KAPLAN DO, CHANDLER K 787.02 NAUSEA ALONE 07/08/2011 487.1 INFLUENZA 07/08/2011 487.1 INFLUENZA 07/08/2011 ROMERO BERNARD, CODEY A 487.1 INFLUENZA 07/08/2011 JERZYE CHIEF BUSINESS OFFICER, CODEY A 487.1 INFLUENZA 07/08/2011 CHANDLER KAPLAN DO K 487.1 INFLUENZA 07/08/2011 CATHYOTTE CHIEF BUSINESS OFFICER, CODEY A 487.1 INFLUENZA 07/08/2011 RAJASAFE CHIEF BUSINESS OFFICER, CODEY A 487.1 INFLUENZA 07/08/2011 RAJOTTE CHIEF BUSINESS OFFICER, CODEY A 487.1 INFLUENZA 07/08/2011 CHANDLER KAPLAN DO K 487.1 INFLUENZA 01/14/2012 464.00 LARYNGITIS ACUTE W/O OBSTRUCTION 01/14/2012 464.00 LARYNGITIS ACUTE W/O OBSTRUCTION 01/14/2012 JERZYE CHIEF BUSINESS OFFICER, CODEY A 464.00 LARYNGITIS ACUTE W/O OBSTRUCTION 01/14/2012 JERZYE CHIEF BUSINESS OFFICER, CODEY A 464.00 LARYNGITIS ACUTE W/O OBSTRUCTION 01/14/2012 CHANDLER KAPLAN DO 464.00 LARYNGITIS ACUTE W/O OBSTRUCTION 01/14/2012 JERZYE CHIEF BUSINESS OFFICER, CODEY A 464.00 LARYNGITIS ACUTE W/O OBSTRUCTION 01/14/2012 JERZYE CHIEF BUSINESS OFFICER, CODEY A 464.00 LARYNGITIS ACUTE W/O OBSTRUCTION 01/14/2012 JERZYE CHIEF BUSINESS OFFICER, CODEY A 464.00 LARYNGITIS ACUTE W/O OBSTRUCTION 01/14/2012 CHANDLER KAPLAN DO 464.00 LARYNGITIS ACUTE W/O OBSTRUCTION 04/15/2012 V04.81 FLU DX (3 YRS AND ABOVE, IM) 04/15/2012 V04.81 FLU DX (3 YRS AND ABOVE, IM) 04/15/2012 JERZYE CHIEF BUSINESS OFFICER, CODEY A V04.81 FLU DX (3 YRS AND ABOVE, IM) 04/15/2012 JERZYE CHIEF BUSINESS OFFICER, CODEY A V04.81 FLU DX (3 YRS AND ABOVE, IM) 04/15/2012 CHANDLER KAPLAN DO V04.81 FLU DX (3 YRS AND ABOVE, IM) 04/15/2012 JERZYE CHIEF BUSINESS OFFICER, CODEY A V04.81 FLU DX (3 YRS AND ABOVE, IM) 04/15/2012 RAJOTTE CHIEF BUSINESS OFFICER, CODEY A V04.81 FLU DX (3 YRS AND ABOVE, IM) 04/15/2012 RAJOTTE CHIEF BUSINESS OFFICER, CODEY A V04.81 FLU DX (3 YRS AND ABOVE, IM) 04/15/2012 KAPLAN DO, CHANDLER K V04.81 FLU DX (3 YRS AND ABOVE, IM) 12/21/2012 381.81 EUSTACHIAN TUBE DYSFUNCTION 12/21/2012 RAJOTTE CHIEF BUSINESS OFFICER, CODEY A 381.81 EUSTACHIAN TUBE DYSFUNCTION 12/21/2012 RAJOTTE CHIEF BUSINESS OFFICER, CODEY A 381.81 EUSTACHIAN TUBE DYSFUNCTION 12/21/2012 KAPLAN DO, CHANDLER K 381.81 EUSTACHIAN TUBE DYSFUNCTION 12/21/2012 RAJOTTE CHIEF BUSINESS OFFICER, CODEY A 381.81 EUSTACHIAN TUBE DYSFUNCTION 12/21/2012 RAJOTTE CHIEF BUSINESS OFFICER, CODEY A 381.81 EUSTACHIAN TUBE DYSFUNCTION 12/21/2012 RAJOTTE CHIEF BUSINESS OFFICER, CODEY A 381.81 EUSTACHIAN TUBE DYSFUNCTION 12/21/2012 MARIALUISA KAPLAN DOA K 381.81 EUSTACHIAN TUBE DYSFUNCTION 02/22/2013 RAJOTTE CHIEF BUSINESS OFFICER, CODEY A 493.92 ASTHMA (ACUTE) EXACERBATION 02/22/2013 RAJOTTE CHIEF BUSINESS OFFICER, CODEY A 493.92 ASTHMA (ACUTE) EXACERBATION 02/22/2013 MARIALUISA KAPLAN DOA K 493.92 ASTHMA (ACUTE) EXACERBATION 02/22/2013 RAJOTTE CHIEF BUSINESS OFFICER, CODEY A 493.92 ASTHMA (ACUTE) EXACERBATION 02/22/2013 RAJOTTE CHIEF BUSINESS OFFICER, CODEY A 493.92 ASTHMA (ACUTE) EXACERBATION 02/22/2013 RAJOTTE CHIEF BUSINESS OFFICER, CODEY A 493.92 ASTHMA (ACUTE) EXACERBATION 02/22/2013 ROSAURA REYES CHANDLER K 493.92 ASTHMA (ACUTE) EXACERBATION 04/14/2013 RAJOTTE CHIEF BUSINESS OFFICER, CODEY A 466.0 BRONCHITIS, ACUTE 04/14/2013 RAJOTTE CHIEF BUSINESS OFFICER, CODEY A 466.0 BRONCHITIS, ACUTE 04/14/2013 RAJOTTE CHIEF BUSINESS OFFICER, CODEY A 466.0 BRONCHITIS, ACUTE 04/14/2013 MARIALUISA KAPLAN DOA K 466.0 BRONCHITIS, ACUTE 06/30/2013 CHANDLER KAPLAN DO K 461.9 SINUSITIS ACUTE 10/16/2015 LEES, WANDA L SUSTAIN ENGINEER Ot 268.9 VITAMIN D DEFICIENCY NOS 10/16/2015 WANDA LEES SUSTAIN ENGINEER Ot 626.0 ABSENCE OF MENSTRUATION 10/16/2015 WANDA LEES SUSTAIN ENGINEER Ot 719.40 JOINT PAIN-UNSPEC 10/16/2015 WANDA LEES SUSTAIN ENGINEER Ot 780.79 OTH MALAISE FATIGUE 10/16/2015 WANDA LEES SUSTAIN ENGINEER Ot 625.9 FEM GENITAL SYMPTOMS NOS 10/16/2015 WANDA LEES SUSTAIN ENGINEER Ot 789.00 ABDOMINAL PAIN, UNSPECIFIED SITE 10/16/2015 WANDA LEES SUSTAIN ENGINEER Ot 625.9 FEM GENITAL SYMPTOMS NOS 10/16/2015 MARY ANN LEES DO Ot 620.2 OVARIAN CYST NEC/NOS 10/18/2015 JOANNA CABRERA CHIEF BUSINESS OFFICER Ot E28.2 POLYCYSTIC OVARIAN SYNDROME 10/18/2015 JOANNA CABRERA CHIEF BUSINESS OFFICER Ot E28.2 POLYCYSTIC OVARIAN SYNDROME 10/14/2016 JOANNA CABRERA CHIEF BUSINESS OFFICER Ot E28.2 POLYCYSTIC OVARIAN SYNDROME 10/14/2016 ELIAS PIPER MD Ot J45.909 UNSPECIFIED ASTHMA, UNCOMPLICATED 10/14/2016 ELIAS PIPER MD Ot R11.10 VOMITING, UNSPECIFIED 10/14/2016 ELIAS PIPER MD Ot R11.2 NAUSEA WITH VOMITING, UNSPECIFIED 10/17/2016 ELIAS PIPER MD Ot J45.909 UNSPECIFIED ASTHMA, UNCOMPLICATED 10/17/2016 ELIAS PIPER MD Ot R11.10 VOMITING, UNSPECIFIED 10/17/2016 ELIAS PIPER MD Ot R11.2 NAUSEA WITH VOMITING, UNSPECIFIED 10/23/2016 ELIAS PIPER MD Ot J45.909 UNSPECIFIED ASTHMA, UNCOMPLICATED 10/23/2016 ELIAS PPIER MD Ot R11.10 VOMITING, UNSPECIFIED 10/23/2016 ELIAS PIPER MD Ot R11.2 NAUSEA WITH VOMITING, UNSPECIFIED 11/15/2016 JOANNA CABRERA APRN Ot E28.2 POLYCYSTIC OVARIAN SYNDROME Procedures Code [place] [address] THERAPUTIC INJ SQ/IM 12/21/2012 J1030 DEPO MEDROL 40 MG INJ 12/21/2012 39037 OXIMETRY 2012 20842 OXIMETRY 2012 56611 OXIMETRY 2012 61760 PULMONARY FUNCTION TEST (IN-HOUSE) 05/26/2013 65225 RESPIRATORY FLOW VOLUME LOOP 05/26/2013 Results Test Result Range Complete blood count (CBC) with automated white blood cell (WBC) differential - 10/14/16 15:48 Blood leukocytes automated count (number/volume) 12.2 10*3/ uL 4.3-11.0 Blood erythrocytes automated count (number/volume) 4.84 10*6 /uL 4.35-5.85 Venous blood hemoglobin measurement (mass/volume) 14.0 g/dL 11.5-16.0 Blood hematocrit (volume fraction) 41 % 35-52 Automated erythrocyte mean corpuscular volume 84 [foz_us] 80-99 Automated erythrocyte mean corpuscular hemoglobin (mass per erythrocyte) 29 pg 25-34 Automated erythrocyte mean corpuscular hemoglobin concentration measurement ( mass/volume) 34 g/dL 32-36 Automated erythrocyte distribution width ratio 12.4 % 10.0-14.5 Automated blood platelet count (count/volume) 317 10*3/uL 130-400 Automated blood platelet mean volume measurement 10.0 [foz_ us] 7.4-10.4 Automated blood neutrophils/100 leukocytes 91 % 42-75 Automated blood lymphocytes/100 leukocytes 5 % 12-44 Blood monocytes/100 leukocytes 4 % 0-12 Automated blood eosinophils/100 leukocytes 0 % 0-10 Automated blood basophils/100 leukocytes 0 % 0-10 Blood neutrophils automated count (number/volume) 11.1 10*3 1.8-7.8 Blood lymphocytes automated count (number/volume) 0.6 10*3 1.0-4.0 Blood monocytes automated count (number/volume) 0.5 10*3 0.0-1.0 Automated eosinophil count 0.0 10*3/uL 0.0-0.3 Automated blood basophil count (count/volume) 0.0 10*3/uL 0.0-0.1 Serum or plasma choriogonadotropin ( test) detection - 10/14/16 15:48 Serum or plasma choriogonadotropin ( test) detection NEGATIVE NEGATIVE Comprehensive metabolic panel - 10/14/16 15:48 Serum or plasma sodium measurement (moles/volume) 141 mmol/ L 135-145 Serum or plasma potassium measurement (moles/volume) 3.9 mmol/L 3.6-5.0 Serum or plasma chloride measurement (moles/volume) 106 mmol /L 98-107 Carbon dioxide 23 mmol/L 21-32 Serum or plasma anion gap determination (moles/volume) 12 mmol/L 5-14 Serum or plasma urea nitrogen measurement (mass/volume) 14 mg/dL 7-18 Serum or plasma creatinine measurement (mass/volume) 0.88 mg /dL 0.60-1.30 Serum or plasma urea nitrogen/creatinine mass ratio 16 NRG Serum or plasma creatinine measurement with calculation of estimated glomerular filtration rate > NRG Serum or plasma glucose measurement (mass/volume) 102 mg/dL 70-105 Serum or plasma calcium measurement (mass/volume) 9.6 mg/dL 8.5-10.1 Serum or plasma total bilirubin measurement (mass/volume) 0.5 mg/dL 0.1-1.0 Serum or plasma alkaline phosphatase measurement (enzymatic activity/volume) 117 U/L 40-136 Serum or plasma aspartate aminotransferase measurement (enzymatic activity/ volume) 24 U/L 5-34 Serum or plasma alanine aminotransferase measurement (enzymatic activity/volume ) 27 U/L 0-55 Serum or plasma protein measurement (mass/volume) 8.2 g/dL 6.4-8.2 Serum or plasma albumin measurement (mass/volume) 4.6 g/dL 3.2-4.5 Blood manual differential performed detection - 10/14/16 15:48 Blood monocytes/100 leukocytes 4 % NRG Manual blood segmented neutrophils/100 leukocytes 89 % NRG Blood band neutrophils/100 leukocytes 6 % NRG Manual blood lymphocytes/100 leukocytes 0 % NRG Manual eosinophils/100 leukocytes in nose 1 % NRG Manual blood basophils/100 leukocytes 0 % NRG Blood erythrocyte morphology finding identification NORMAL NRG Complete urinalysis with reflex to culture - 10/14/16 16:46 Urine color determination YELLOW NRG Urine clarity determination SLIGHTLY CLOUDY NRG Urine pH measurement by test strip 8 5- 9 Specific gravity of urine by test strip 1.015 1.016-1.022 Urine protein assay by test strip, semi-quantitative NEGATIVE NEGATIVE Urine glucose detection by automated test strip NEGATIVE NEGATIVE Erythrocytes detection in urine sediment by light microscopy 1+ NEGATIVE Urine ketones detection by automated test strip 4+ NEGATIVE Urine nitrite detection by test strip NEGATIVE NEGATIVE Urine total bilirubin detection by test strip NEGATIVE NEGATIVE Urine urobilinogen measurement by automated test strip (mass/volume) NORMAL NORMAL Urine leukocyte esterase detection by dipstick 2+ NEGATIVE Automated urine sediment erythrocyte count by microscopy (number/high power field) [HPF] NRG Automated urine sediment leukocyte count by microscopy (number/high power field ) [HPF] NRG Bacteria detection in urine sediment by light microscopy FEW NRG Squamous epithelial cells detection in urine sediment by light microscopy 5-10 NRG Crystals detection in urine sediment by light microscopy NONE NRG Casts detection in urine sediment by light microscopy NONE NRG Mucus detection in urine sediment by light microscopy NEGATIVE NRG Complete urinalysis with reflex to culture NO NRG Urine beta human chorionic gonadotropin (hCG) measurement - 11/15/16 21:46 Urine beta human chorionic gonadotropin (hCG) measurement NEGATIVE NEGATIVE Complete urinalysis with reflex to culture - 11/15/16 21:46 Urine color determination YELLOW NRG Urine clarity determination SLIGHTLY CLOUDY NRG Urine pH measurement by test strip 5 5- 9 Specific gravity of urine by test strip 1.025 1.016-1.022 Urine protein assay by test strip, semi-quantitative 1+ NEGATIVE Urine glucose detection by automated test strip NEGATIVE NEGATIVE Erythrocytes detection in urine sediment by light microscopy 5+ NEGATIVE Urine ketones detection by automated test strip 4+ NEGATIVE Urine nitrite detection by test strip NEGATIVE NEGATIVE Urine total bilirubin detection by test strip NEGATIVE NEGATIVE Urine urobilinogen measurement by automated test strip (mass/volume) NORMAL NORMAL Urine leukocyte esterase detection by dipstick 3+ NEGATIVE Automated urine sediment erythrocyte count by microscopy (number/high power field) [HPF] NRG Automated urine sediment leukocyte count by microscopy (number/high power field ) [HPF] NRG Bacteria detection in urine sediment by light microscopy FEW NRG Squamous epithelial cells detection in urine sediment by light microscopy 2-5 NRG Crystals detection in urine sediment by light microscopy NONE NRG Casts detection in urine sediment by light microscopy NONE NRG Mucus detection in urine sediment by light microscopy NEGATIVE NRG Complete urinalysis with reflex to culture YES NRG Bacterial urine culture - 11/15/16 21:46 Encounters ACCT No. Visit Date/Time Discharge Status Pt. Type Provider Facility Loc./Unit Complaint [id number] 06/30/2013 12:00:00 06/30/2013 23: 59:59 CLS Outpatient CHANDLER KAPLAN DO [id number] 06/23/2013 10:08:00 06/23/2013 23: 59:59 CLS Outpatient VIOLA JASSO APRNVALENCIA Downs [id number] 05/26/2013 11:30:00 05/26/2013 23: 59:59 CLS Outpatient ROMERO BERNARDCODEY [id number] 04/14/2013 12:59:00 04/14/2013 23: 59:59 CLS Outpatient ROMERO BERNARDCODEY [id number] 04/10/2013 12:54:00 04/10/2013 23: 59:59 CLS Outpatient CHANDLER KAPLAN DO [id number] 03/10/2013 12:52:00 03/10/2013 23: 59:59 CLS Outpatient ROMERO TAYLORCODEY Dinero [id number] 02/22/2013 13:08:00 02/22/2013 23: 59:59 CLS Outpatient ROMERO BERNARDCODEY [id number] 04/15/2012 16:48:00 04/15/2012 23: 59:59 CLS Outpatient [id number] 12/21/2012 11:59:00 Document Registration
== END 2016-11-15 22:53 | disposition home or self-care (01) ==
LOC: EDUNIT# 21:15 → ER 21:17
DX: N20.0 Calculus of kidney (principal); J45.909 Unspecified asthma, uncomplicated
CPT/HCPCS: 74176; 81000; 84703; 87088; 96372; 96374

== ENCOUNTER → 2016-11-19 | Outpatient (CLI) | payer OTHER ==
[~2016-11-19] MED LIST changes: +CEPH-507 PO; +HYDR-3812 PO; +NF-XOP-HFA IH; +PROM25TA14 PO; +TAMS0.4C98 PO
--- NOTE | 2016-11-19 14:43 | Diagnostic Imaging Report ---
INDICATION: History of kidney stones. COMPARISON: CT dated 11/15/2016. FINDINGS: Single frontal radiographic view of the abdomen was obtained and demonstrates nondistended loops of small bowel. Moderate air and stool is noted scattered throughout the colon. There is no large collection of free intraperitoneal air. No unexpected extraosseous calcifications or radiopaque foreign bodies are identified. Bony structures show no gross acute abnormalities. IMPRESSION: 1. Possible interval passage of previously described distal right ureteral calculus. Conceivably, the calculus may be too small to appreciate on this exam. Clinical correlation recommended. 2. Moderate colonic air and stool. Please correlate for constipation. Dictated by: Dictated on workstation # [id number]
== END ==
LOC: RAD 14:25
PROVIDERS: ATTEND Urology
DX: K59.00 Constipation, unspecified (principal); Z87.442 Personal history of urinary calculi
CPT/HCPCS: 74000

== ENCOUNTER 2016-11-21 05:37 | Outpatient (CLI) | payer OTHER ==
[~2016-11-21] VITALS: Ht 154.9 cm; Wt 74.8 kg
[~2016-11-21 05:37] MED LIST changes: -NF-XOP-HFA IH
[2016-11-21] MEDS ORDERED: NF-XOP-HFA IH (14:52)
== END 2016-11-21 15:00 ==
LOC: PREOP 05:37
PROVIDERS: ATTEND Urology
DX: Z01.818 Encounter for other preprocedural examination (principal); N20.1 Calculus of ureter

== ENCOUNTER 2016-11-22 10:06 | Day surgery (SDC) | payer OTHER ==
[~2016-11-22] VITALS: Ht 154.9 cm; Wt 74.8 kg
[~2016-11-22 10:06] MED LIST changes: +NF-XOP-HFA IH
--- OUTSIDE RECORDS SUMMARY | 2016-11-22 10:11 | XMS REPORT | Continuity of Care Document ---
Author Author [facility] Organization [facility] Address Unknown Phone Unavailable Care Team Providers Care Paper Colorer Name Role Phone PCP Unavailable Source Comments Some departments are not documenting in the electronic medical record. If you do not see the information that you expected, contact Release of Information in the Health Information Management department at [phone] for further assistance in locating additional records.[facility] Active Allergies and Adverse Reactions Allergen Noted [...] Taken Blood Pressure 108/66 03/17/2013 10:18 AM CARDIAC NURSE Pulse - - Temperature - - Respiratory Rate - - Height 1.549 m (5' 1") 03/17/2013 10:18 AM CARDIAC NURSE Weight 77.565 kg (171 lb) 03/17/2013 10:18 AM CARDIAC NURSE Body Mass Index 32.33 03/17/2013 10:18 AM CARDIAC NURSE Oxygen Saturation - - Plan of Care Health Maintenance Due Date Last Done Comments Physical (Comprehensive) 12/07/2003 Exam Hpv Vaccines (#1) 12/07/2007 Pertussis Vaccine 12/07/2007 Tetanus Vaccine 2013 Influenza Vaccine 01/10/2017 Results from Last 3 Months Not on file
--- OUTSIDE RECORDS SUMMARY | 2016-11-22 10:13 | XMS REPORT | Continuity of Care Document ---
Author Author [facility] Address Unknown Phone Unavailable Allergies Active Description Code Type Severity Reaction Onset Reported/Identified Relationship to Patient Clinical Status Yes Augmentin Drug Allergy N/A N/A 08/22/2008 Yes Dramamine Drug Allergy N/A N/A 08/22/2008 Yes Augmentin Drug Allergy 08/22/2008 Yes Dramamine Drug Allergy 08/22/2008 Yes metformin Drug Allergy N/A N/A 02/22/2013 Yes amoxicillin [id number] Drug Allergy Unknown N/A 10/14/2016 Yes clavulanic acid [id number] Drug Allergy Unknown N/A 10/14/2016 Yes dimenhydrinate [id number] Drug Allergy Unknown N/A 10/14/2016 Yes ondansetron [id number] Drug Allergy Unknown N/A 10/14/2016 Yes sulfacetamide [id number] Drug Allergy Unknown N/A 10/14/2016 Medications Problems [...] DO 482.89 ATYPICAL MYCOBACTERIAL PNEUMONIA 12/21/2008 RAJOTTE BEAD FLIPPER, CODEY A 482.89 ATYPICAL MYCOBACTERIAL PNEUMONIA 12/21/2008 RAJOTTE BEAD FLIPPER, CODEY A 482.89 ATYPICAL MYCOBACTERIAL PNEUMONIA 12/21/2008 RAJOTTE BEAD FLIPPER, CODEY A 482.89 ATYPICAL MYCOBACTERIAL PNEUMONIA 12/21/2008 [...] PCV7 PCV23, STREPTOCOCCUS PNEUMONIAE [PNEUMOCOCCUS] 01/17/2009 CATHYOTTE BEAD FLIPPER, CODEY A V03.82 PCV7 PCV23, STREPTOCOCCUS PNEUMONIAE [PNEUMOCOCCUS] 01/17/2009 JERZYE MARCO ANTONIO CODEY A V03.82 PCV7 PCV23, STREPTOCOCCUS PNEUMONIAE [PNEUMOCOCCUS] 01/17/2009 CHANDLER KAPLAN DO V03.82 PCV7 PCV23, STREPTOCOCCUS PNEUMONIAE [ PNEUMOCOCCUS] 01/24/2009 493.90 ASTHMA 01/24/2009 493.90 ASTHMA 01/24/[address] FLIPPER, CODEY A 493.90 ASTHMA 01/24/2009 RAJ[address] FLIPPER, CODEY A 493.90 ASTHMA 01/24/2009 CHANDLER KAPLAN DO 493.90 ASTHMA 01/24/2009 RAJOTTE BEAD FLIPPER, CODEY A 493.90 ASTHMA 01/24/2009 RAJOTTE BEAD FLIPPER, CODEY A 493.90 ASTHMA 01/24/2009 RAJOTTE BEAD FLIPPER, CODEY A 493.90 ASTHMA 01/24/2009 CHANDLER KAPLAN DO 493.90 ASTHMA 04/14/2009 110.5 TINEA CORPORIS 04/14/2009 465.9 UPPER RESPIRATORY INFECTION 04/14/2009 786.2 COUGH 04/14/2009 110.5 TINEA CORPORIS 04/14/2009 465.9 UPPER RESPIRATORY INFECTION 04/14/2009 786.2 COUGH 04/14/2009 RAJOTTE BEAD FLIPPER, CODEY A 110.5 TINEA CORPORIS 04/14/2009 RAJOTTE BEAD FLIPPER, CODEY A 465.9 UPPER RESPIRATORY INFECTION 04/14/2009 RAJOTTE BEAD FLIPPER, CODEY A 786.2 COUGH 04/14/2009 RAJOTTE BEAD FLIPPER, CODEY A 110.5 TINEA CORPORIS 04/14/2009 RAJOTTE BEAD FLIPPER, CODEY A 465.9 UPPER RESPIRATORY INFECTION 04/14/2009 RAJOTTE BEAD FLIPPER, CODEY A 786.2 COUGH 04/14/2009 KAPLAN DO, CHANDLER K 110.5 TINEA CORPORIS 04/14/2009 KAPLAN DO, CHANDLER K 465.9 UPPER RESPIRATORY INFECTION 04/14/2009 KAPLAN DO, CHANDLER K 786.2 COUGH 04/14/2009 RAJOTTE BEAD FLIPPER, CODEY A 110.5 TINEA CORPORIS 04/14/2009 RAJOTTE BEAD FLIPPER, CODEY A 465.9 UPPER RESPIRATORY INFECTION 04/14/2009 RAJOTTE BEAD FLIPPER, CODEY A 786.2 COUGH 04/14/2009 RAJOTTE BEAD FLIPPER, CODEY A 110.5 TINEA CORPORIS 04/14/2009 RAJOTTE BEAD FLIPPER, CODEY A 465.9 UPPER RESPIRATORY INFECTION 04/14/2009 RAJOTTE BEAD FLIPPER, CODEY A 786.2 COUGH 04/14/2009 RAJOTTE BEAD FLIPPER, CODEY A 110.5 TINEA CORPORIS 04/14/2009 RAJOTTE BEAD FLIPPER, CODEY A 465.9 UPPER RESPIRATORY INFECTION 04/14/2009 RAJOTTE BEAD FLIPPER, CODEY A 786.2 COUGH 04/14/2009 KAPLAN DO, CHANDLER K 110.5 TINEA CORPORIS 04/14/2009 KAPLAN DO, CHANDLER K 465.9 UPPER RESPIRATORY INFECTION 04/14/2009 KAPLAN DO, CHANDLER K 786.2 COUGH 06/16/2009 477.9 RHINITIS 06/16/2009 477.9 RHINITIS 06/16/2009 RA[address] FLIPPER, CODEY A 477.9 RHINITIS 06/16/2009 RAJOTTE BEAD FLIPPER, CODEY A 477.9 RHINITIS 06/16/2009 KAPLAN DO, CHANDLER K 477.9 RHINITIS 06/16/2009 RAJOTTE BEAD FLIPPER, CODEY A 477.9 RHINITIS 06/16/2009 RAJOTTE BEAD FLIPPER, CODEY A 477.9 RHINITIS 06/16/2009 RAJOTTE BEAD FLIPPER, CODEY A 477.9 RHINITIS 06/16/2009 KAPLAN DO, CHANDLER K 477.9 RHINITIS 08/05/2009 723.1 CERVICALGIA 08/05/2009 784.0 HEADACHE 08/05/2009 723.1 CERVICALGIA 08/05/2009 784.0 HEADACHE 08/05/2009 RAJ[address] BEAD FLIPPER, CODEY A 723.1 CERVICALGIA 08/05/2009 RAJOTTE BEAD FLIPPER, CODEY A 784.0 HEADACHE 08/05/2009 RAJOTTE BEAD FLIPPER, CODEY A 723.1 CERVICALGIA 08/05/2009 RAJOTTE BEAD FLIPPER, CODEY A 784.0 HEADACHE 08/05/2009 KAPLAN DOCHANDLER K 723.1 CERVICALGIA 08/05/2009 ROSAURA DOMARIALUISAA K 784.0 HEADACHE 08/05/2009 RA[address]AD FLIPPER, CODEY A 723.1 CERVICALGIA 08/05/2009 RAJOTTE BEAD FLIPPER, CODEY A 784.0 HEADACHE 08/05/2009 RAJOTTE BEAD FLIPPER, CODEY A 723.1 CERVICALGIA 08/05/2009 RAJOTTE BEAD FLIPPER, CODEY A 784.0 HEADACHE 08/05/2009 RAJOTTE BEAD FLIPPER, CODEY A 723.1 CERVICALGIA 08/05/2009 RAJOTTE BEAD FLIPPER, CODEY A 784.0 HEADACHE 08/05/2009 ROSAURA DOCHANDLER K 723.1 CERVICALGIA 08/05/2009 KAPLAN DOMARIALUISAA K 784.0 HEADACHE 12/01/2009 V70.3 SPORTS/SCHOOL EXAM 12/01/2009 V70.3 SPORTS/SCHOOL EXAM 12/01/2009 RAJOTTE BEAD FLIPPER, CODEY A V70.3 SPORTS/SCHOOL EXAM 12/01/2009 RAJOTTE BEAD FLIPPER, CODEY A V70.3 SPORTS/SCHOOL EXAM 12/01/2009 KAPLAN DOMARIALUISAA K V70.3 SPORTS/SCHOOL EXAM 12/01/2009 RAJOTTE BEAD FLIPPER, CODEY A V70.3 SPORTS/SCHOOL EXAM 12/01/2009 RAJOTTE BEAD FLIPPER, CODEY A V70.3 SPORTS/SCHOOL EXAM 12/01/2009 CATHYOTTE BEAD FLIPPER, CODEY A V70.3 SPORTS/SCHOOL EXAM 12/01/2009 CHANDLER KAPLAN DO V70.3 SPORTS/SCHOOL EXAM 02/02/2010 462 ACUTE PHARYNGITIS 02/02/2010 462 ACUTE PHARYNGITIS 02/02/2010 RAJOTTE BEAD FLIPPER, CODEY A 462 ACUTE PHARYNGITIS 02/02/2010 RAJOTTE BEAD FLIPPER, CODEY A 462 ACUTE PHARYNGITIS 02/02/2010 CHANDLER KAPLAN DO 462 ACUTE PHARYNGITIS 02/02/2010 RAJOTTE BEAD FLIPPER, CODEY A 462 ACUTE PHARYNGITIS 02/02/2010 RAJOTTE BEAD FLIPPER, CODEY A 462 ACUTE PHARYNGITIS 02/02/2010 RAJOTTE BEAD FLIPPER, CODEY A 462 ACUTE PHARYNGITIS 02/02/2010 CHANDLER KAPLAN DO 462 ACUTE PHARYNGITIS 08/23/2010 780.4 DIZZINESS AND GIDDINESS 08/23/2010 780.4 DIZZINESS AND GIDDINESS 08/23/2010 RAJOTTE BEAD FLIPPER, CODEY A 780.4 DIZZINESS AND GIDDINESS 08/23/2010 RAJOTTE BEAD FLIPPER, CODEY A 780.4 DIZZINESS AND GIDDINESS 08/23/2010 CHANDLER KAPLAN DO 780.4 DIZZINESS AND GIDDINESS 08/23/2010 RAJOTTE BEAD FLIPPER, CODEY A 780.4 DIZZINESS AND GIDDINESS 08/23/2010 RAJOTTE BEAD FLIPPER, CODEY A 780.4 DIZZINESS AND GIDDINESS 08/23/2010 RAJOTTE BEAD FLIPPER, CODEY A 780.4 DIZZINESS AND GIDDINESS 08/23/2010 CHANDLER KAPLAN DO 780.4 DIZZINESS AND GIDDINESS 02/07/2011 278.00 OBESITY 02/07/2011 278.00 OBESITY 02/07/2011 RAJOTTE BEAD FLIPPER, CODEY A 278.00 OBESITY 02/07/2011 RAJOTTE BEAD FLIPPER, CODEY A 278.00 OBESITY 02/07/2011 CHANDLER KAPLAN DO 278.00 OBESITY 02/07/2011 RAJOTTE BEAD FLIPPER, CODEY A 278.00 OBESITY 02/07/2011 RAJOTTE BEAD FLIPPER, CODEY A 278.00 OBESITY 02/07/2011 RAJOTTE BEAD FLIPPER, CODEY A 278.00 OBESITY 02/07/2011 KAPLNA DO, CHANDLER K 278.00 OBESITY 03/14/2011 626.4 IRREGULAR MENSTRUAL CYCLE 03/14/2011 V20.2 WELL CHILD 03/14/2011 626.4 IRREGULAR MENSTRUAL CYCLE 03/14/2011 V20.2 WELL CHILD 03/14/2011 RAJOTTE BEAD FLIPPER, CODEY A 626.4 IRREGULAR MENSTRUAL CYCLE 03/14/2011 RAJOTTE BEAD FLIPPER, CODEY A V20.2 WELL CHILD 03/14/2011 RAJOTTE BEAD FLIPPER, CODEY A 626.4 IRREGULAR MENSTRUAL CYCLE 03/14/2011 RAJOTTE BEAD FLIPPER, CODEY A V20.2 WELL CHILD 03/14/2011 KAPLAN DO, CHANDLER K 626.4 IRREGULAR MENSTRUAL CYCLE 03/14/2011 KAPLAN DO, CHANDLER K V20.2 WELL CHILD 03/14/2011 RAJOTTE BEAD FLIPPER, CODEY A 626.4 IRREGULAR MENSTRUAL CYCLE 03/14/2011 RAJOTTE BEAD FLIPPER, CODEY A V20.2 WELL CHILD 03/14/2011 RAJOTTE BEAD FLIPPER, CODEY A 626.4 IRREGULAR MENSTRUAL CYCLE 03/14/2011 RAJOTTE BEAD FLIPPER, CODEY A V20.2 WELL CHILD 03/14/2011 RAJOTTE BEAD FLIPPER, CODEY A 626.4 IRREGULAR MENSTRUAL CYCLE 03/14/2011 RAJOTTE BEAD FLIPPER, CODEY A V20.2 WELL CHILD 03/14/2011 KAPLAN DO, CHANDLER K 626.4 IRREGULAR MENSTRUAL CYCLE 03/14/2011 KAPLAN DO, CHANDLER K V20.2 WELL CHILD 04/01/2011 272.4 HYPERLIPIDEMIA 04/01/2011 272.4 HYPERLIPIDEMIA 04/01/2011 RAJOTTE BEAD FLIPPER, CODEY A 272.4 HYPERLIPIDEMIA 04/01/2011 RAJOTTE BEAD FLIPPER, CODEY A 272.4 HYPERLIPIDEMIA 04/01/2011 KAPLAN DO, CHANDLER K 272.4 HYPERLIPIDEMIA 04/01/2011 RAJOTTE BEAD FLIPPER, CODEY A 272.4 HYPERLIPIDEMIA 04/01/2011 RAJOTTE BEAD FLIPPER, CODEY A 272.4 HYPERLIPIDEMIA 04/01/2011 RAJOTTE BEAD FLIPPER, CODEY A 272.4 HYPERLIPIDEMIA 04/01/2011 KAPLAN DO CHANDLER K 272.4 HYPERLIPIDEMIA 05/24/2011 724.5 BACKACHE UNSPECIFIED 05/24/2011 780.79 MALAISE AND FATIGUE 05/24/2011 787.02 NAUSEA ALONE 05/24/2011 724.5 BACKACHE UNSPECIFIED 05/24/2011 780.79 MALAISE AND FATIGUE 05/24/2011 787.02 NAUSEA ALONE 05/24/2011 ROMERO MARCO ANTONIO CODEY A 724.5 BACKACHE UNSPECIFIED 05/24/2011 JERZYGokul TAYLORBar OCDEY A 780.79 MALAISE AND FATIGUE 05/24/2011 JERZYGokul [...] 780.79 MALAISE AND FATIGUE 05/24/2011 KAPLAN DO, CHANDELR K 787.02 NAUSEA ALONE 07/08/2011 487.1 INFLUENZA 07/08/2011 487.1 INFLUENZA 07/08/2011 ROMERO BERNARD, CODEY A 487.1 INFLUENZA 07/08/2011 J[address] BEAD FLIPPER, CODEY A 487.1 INFLUENZA 07/08/2011 CHANDLER KAPLAN DO K 487.1 INFLUENZA 07/08/2011 CATHYOTTE BEAD FLIPPER, CODEY A 487.1 INFLUENZA 07/08/2011 RAJASAFE BEAD FLIPPER, CODEY A 487.1 INFLUENZA 07/08/2011 RAJOTTE BEAD FLIPPER, CODEY A 487.1 INFLUENZA 07/08/2011 CHANDLER KAPLAN DO K 487.1 INFLUENZA 01/14/2012 464.00 LARYNGITIS ACUTE W/O OBSTRUCTION 01/14/2012 464.00 LARYNGITIS ACUTE W/O OBSTRUCTION 01/14/2012 JERZYE BEAD FLIPPER, CODEY A 464.00 LARYNGITIS ACUTE W/O OBSTRUCTION 01/14/2012 JERZYE BEAD FLIPPER, CODEY A 464.00 LARYNGITIS ACUTE W/O OBSTRUCTION 01/14/2012 CHANDLER KAPLAN DO 464.00 LARYNGITIS ACUTE W/O OBSTRUCTION 01/14/2012 JERZYE BEAD FLIPPER, CODEY A 464.00 LARYNGITIS ACUTE W/O OBSTRUCTION 01/14/2012 JERZYE BEAD FLIPPER, CODEY A 464.00 LARYNGITIS ACUTE W/O OBSTRUCTION 01/14/2012 JERZYE BEAD FLIPPER, CODEY A 464.00 LARYNGITIS ACUTE W/O OBSTRUCTION 01/14/2012 CHANDLER KAPLAN DO 464.00 LARYNGITIS ACUTE W/O OBSTRUCTION 04/15/2012 V04.81 FLU DX (3 YRS AND ABOVE, IM) 04/15/2012 V04.81 FLU DX (3 YRS AND ABOVE, IM) 04/15/2012 JERZYE BEAD FLIPPER, CODEY A V04.81 FLU DX (3 YRS AND ABOVE, IM) 04/15/2012 JERZYE BEAD FLIPPER, CODEY A V04.81 FLU DX (3 YRS AND ABOVE, IM) 04/15/2012 CHANDLER KAPLAN DO V04.81 FLU DX (3 YRS AND ABOVE, IM) 04/15/2012 JERZYE BEAD FLIPPER, CODEY A V04.81 FLU DX (3 YRS AND ABOVE, IM) 04/15/2012 RAJOTTE BEAD FLIPPER, CODEY A V04.81 FLU DX (3 YRS AND ABOVE, IM) 04/15/2012 RAJOTTE BEAD FLIPPER, CODEY A V04.81 FLU DX (3 YRS AND ABOVE, IM) 04/15/2012 KAPLAN DO, CHANDLER K V04.81 FLU DX (3 YRS AND ABOVE, IM) 12/21/2012 381.81 EUSTACHIAN TUBE DYSFUNCTION 12/21/2012 RAJOTTE BEAD FLIPPER, CODEY A 381.81 EUSTACHIAN TUBE DYSFUNCTION 12/21/2012 RAJOTTE BEAD FLIPPER, CODEY A 381.81 EUSTACHIAN TUBE DYSFUNCTION 12/21/2012 KAPLAN DO, CHANDLER K 381.81 EUSTACHIAN TUBE DYSFUNCTION 12/21/2012 RAJOTTE BEAD FLIPPER, CODEY A 381.81 EUSTACHIAN TUBE DYSFUNCTION 12/21/2012 RAJOTTE BEAD FLIPPER, CODEY A 381.81 EUSTACHIAN TUBE DYSFUNCTION 12/21/2012 RAJOTTE BEAD FLIPPER, CODEY A 381.81 EUSTACHIAN TUBE DYSFUNCTION 12/21/2012 MARIALUISA KAPLAN DOA K 381.81 EUSTACHIAN TUBE DYSFUNCTION 02/22/2013 RAJOTTE BEAD FLIPPER, CODEY A 493.92 ASTHMA (ACUTE) EXACERBATION 02/22/2013 RAJOTTE BEAD FLIPPER, CODEY A 493.92 ASTHMA (ACUTE) EXACERBATION 02/22/2013 MARIALUISA KAPLAN DOA K 493.92 ASTHMA (ACUTE) EXACERBATION 02/22/2013 RAJOTTE BEAD FLIPPER, CODEY A 493.92 ASTHMA (ACUTE) EXACERBATION 02/22/2013 RAJOTTE BEAD FLIPPER, CODEY A 493.92 ASTHMA (ACUTE) EXACERBATION 02/22/2013 RAJOTTE BEAD FLIPPER, CODEY A 493.92 ASTHMA (ACUTE) EXACERBATION 02/22/2013 ROSAURA REYES CHANDLER K 493.92 ASTHMA (ACUTE) EXACERBATION 04/14/2013 RAJOTTE BEAD FLIPPER, CODEY A 466.0 BRONCHITIS, ACUTE 04/14/2013 RAJOTTE BEAD FLIPPER, CODEY A 466.0 BRONCHITIS, ACUTE 04/14/2013 RAJOTTE BEAD FLIPPER, CODEY A 466.0 BRONCHITIS, ACUTE 04/14/2013 MARIALUISA KAPLAN DOA K 466.0 BRONCHITIS, ACUTE 06/30/2013 CHANDLER KAPLAN DO K 461.9 SINUSITIS ACUTE 10/16/2015 LEES, WANDA L FRESH FOOD MANAGER Ot 268.9 VITAMIN D DEFICIENCY NOS 10/16/2015 WANDA LEES FRESH FOOD MANAGER Ot 626.0 ABSENCE OF MENSTRUATION 10/16/2015 WANDA LEES FRESH FOOD MANAGER Ot 719.40 JOINT PAIN-UNSPEC 10/16/2015 WANDA LEES FRESH FOOD MANAGER Ot 780.79 OTH MALAISE FATIGUE 10/16/2015 WANDA LEES FRESH FOOD MANAGER Ot 625.9 FEM GENITAL SYMPTOMS NOS 10/16/2015 WANDA LEES FRESH FOOD MANAGER Ot 789.00 ABDOMINAL PAIN, UNSPECIFIED SITE 10/16/2015 WANDA LEES FRESH FOOD MANAGER Ot 625.9 FEM GENITAL SYMPTOMS NOS 10/16/2015 MARY ANN LEES DO Ot 620.2 OVARIAN CYST NEC/NOS 10/18/2015 JOANNA CABRERA BEAD FLIPPER Ot E28.2 POLYCYSTIC OVARIAN SYNDROME 10/18/2015 JOANNA CABRERA BEAD FLIPPER Ot E28.2 POLYCYSTIC OVARIAN SYNDROME 10/14/2016 JOANNA CABRERA BEAD FLIPPER Ot E28.2 POLYCYSTIC OVARIAN SYNDROME 10/14/2016 ELIAS [...] Ot J45.909 UNSPECIFIED ASTHMA, UNCOMPLICATED 10/23/2016 ELIAS PIPER MD Ot R11.10 VOMITING, UNSPECIFIED 10/23/2016 LEIAS PIPER MD Ot R11.2 NAUSEA WITH VOMITING, UNSPECIFIED 11/15/2016 JOANNA CABRERA BEAD FLIPPER Ot E28.2 POLYCYSTIC OVARIAN SYNDROME 11/19/2016 PEARL CLARK MD Ot J45.909 UNSPECIFIED ASTHMA, UNCOMPLICATED 11/19/2016 EDUARDO SQUIRES, PEARL Cottrell Ot M54.5 LOW BACK PAIN 11/19/2016 EDUARDO SQUIRES, PEARL Cottrell Ot N20.0 CALCULUS OF KIDNEY 11/20/2016 PRINCE SQUIRES, GEOFF Downs Ot K59.00 CONSTIPATION, UNSPECIFIED 11/20/2016 GEOFF MORRISON MD Ot Z87.442 PERSONAL HISTORY OF URINARY CALCULI Procedures Code [place] [address] THERAPUTIC INJ SQ/IM 12/21/2012 J1030 DEPO MEDROL 40 MG INJ 12/21/2012 84009 OXIMETRY 2012 06534 OXIMETRY 2012 12574 OXIMETRY 2012 24803 PULMONARY FUNCTION TEST (IN-HOUSE) 05/26/2013 30872 RESPIRATORY FLOW VOLUME LOOP 05/26/2013 Results Test [...] NRG Bacterial urine culture - 11/15/16 21:46 URINE CULTURE RESULTS 10,000/ML - 100,000/ML NRG Encounters ACCT No. Visit Date/Time Discharge Status Pt. Type Provider Facility Loc./Unit Complaint [id number] 06/30/2013 12:00:00 06/30/2013 23: 59:59 CLS Outpatient CHANDLER KAPLAN DO [id number] 06/23/2013 10:08:00 06/23/2013 23: 59:59 CLS Outpatient CODEY JASSO APRN [id number] 05/26/2013 11:30:00 05/26/2013 23: 59:59 CLS Outpatient CODEY JASSO APRN [id number] 04/14/2013 12:59:00 04/14/2013 23: 59:59 CLS Outpatient CODEY JASSO APRN [id number] 04/10/2013 12:54:00 04/10/2013 23: 59:59 CLS Outpatient CHANDLER KAPLAN DO [id number] 03/10/2013 12:52:00 03/10/2013 23: 59:59 CLS Outpatient CODEY JASSO APRN [id number] 02/22/2013 13:08:00 02/22/2013 23: 59:59 CLS Outpatient CODEY JASSO APRN [id number] 04/15/2012 16:48:00 04/15/2012 23: 59:59 CLS Outpatient [id number] 12/21/2012 11:59:00 Document Registration
[2016-11-22] MEDS ORDERED: cefTRIAXone 1 GM (ROCEPHIN) VIAL ONE (10:41)
[2016-11-22] MEDS ORDERED: NS (IVPB) 50 ML ONE (10:42)
[2016-11-22] MEDS ORDERED: LACTATED RINGERS 1,000 ML IV PRN (10:54)
[2016-11-22] MEDS ORDERED: cefTRIAXone 1 GM/NS 50 ML IVPB IV ONE ×2 (11:15)
[2016-11-22] MEDS ORDERED: CATHETER FLUSH 10 ML SYR IV PRN (11:15)
[2016-11-22 11:28] VITALS: BP 110/67
[2016-11-22] MEDS ORDERED: proPOfol 200 MG/20 ML (DIPRIVAN) VIAL IV ONE (12:05)
[2016-11-22] MEDS ORDERED: LACTATED RINGERS 0 ML IV ONE (12:05)
[2016-11-22] MEDS ORDERED: LIDOCAINE PF 2% 5 ML (XYLOCAINE) VIAL ONE (12:05)
[2016-11-22] MEDS ORDERED: fentaNYL INJECTION 100 MCG/2 ML AMP ONE (12:06)
[2016-11-22] MEDS ORDERED: MIDAZOLAM 2 MG/2 ML (VERSED) VIAL ONE (12:06)
[2016-11-22] MEDS ORDERED: DEXAMETHASONE PF 10 MG/ML (DECADRON) VIAL ONE (12:07)
--- NOTE | 2016-11-22 12:10 | Progress Note-Pre Operative ---
Pre-Operative Progress Note H&P Reviewed The H&P was reviewed, patient examined and no changes noted. Date Seen by Provider: Nov 22, 2016 Time Seen by Provider: 12:09 Date H&P Reviewed: Nov 22, 2016 Time H&P Reviewed: 12:09 Pre-Operative Diagnosis: RT DISTAL URETERAL STONE GEOFF MORRISON MD Nov 22, 2016 12:10 pm
[2016-11-22] MEDS ORDERED: SEVOFLURANE (ULTANE) 15 ML INHAL SOLN ONE (12:28)
[2016-11-22] MEDS ORDERED: ROCURONIUM 50 MG/5 ML (ZEMURON) VIAL IV ONE (12:34)
[2016-11-22] MEDS ORDERED: GLYCOPYRROLATE 0.2 MG/ML (ROBINUL) 2 ML VIAL ONE (12:39)
[2016-11-22] MEDS ORDERED: NEOSTIGMINE (BLOXIVERZ ) 1 MG/1ML 10 ML VIAL ONE (12:39)
--- NOTE | 2016-11-22 12:49 | Progress Note-Post Operative ---
Post-Operative Progess Note Surgeon (s)/Outside Cutter (s) Surgeon GEOFF MORRISON MD Outside Cutter: N/A Pre-Operative Diagnosis RT DISTAL URETERAL STONE Post-Operative Diagnosis SAME (PASSED) VAGINAL PROLAPSE Procedure & Operative Findings Date of Procedure 11/22/16 Procedure Performed/Findings CYSTOSCOPY, RT URETEROSCOPY WITH RETROGRADE UROGRAM Anesthesia Type GENERAL Estimated Blood Loss Estimated blood loss (mL): N/A Specimens/Packing Specimens Removed N/A Packing: N/A GEOFF MORRISON MD Nov 22, 2016 12:49 pm
--- NOTE | 2016-11-22 12:51 | Discharge Inst-Urology ---
Discharge Inst-Urology Patient Instructions/Follow Up Plan No follow up or Rx Increase oral fluids for 48 hours and then as needed. Diet and Activity as tolerated. If questions or concerns contact your physician Or seek help at emergency department. GEOFF MORRISON MD Nov 22, 2016 12:51 pm
[2016-11-22] MEDS ORDERED: morphine INJ 10 MG/ML 1ML (SYR OR VIAL) IVP PRN (13:00)
[2016-11-22] MEDS ORDERED: PROMETHAZINE INJ 25 MG/ML (PHENERGAN) AMP IVP PRN (13:00)
[2016-11-22 13:50] VITALS: BP 103/56
[2016-11-22 14:20] VITALS: BP 96/50
[2016-11-22 14:48] VITALS: BP 96/50
[2016-11-22 14:50] VITALS: BP 107/50
--- NOTE | 2016-11-22 16:50 | OPERATIVE REPORT ---
PROCEDURE PHYSICIAN: GEOFF MORRISON DATE OF PROCEDURE: 11/22/2016 PREOPERATIVE DIAGNOSIS: Right distal ureteral stone. POSTOPERATIVE DIAGNOSIS: 1. Right distal ureteral stone "passed". 2. Vaginal prolapse. OPERATION PERFORMED: 1. Cystoscopy. 2. Right ureteroscopy with right retrograde urogram. SURGEON: Zaira. ANESTHESIA: General. COMPLICATIONS: None. PROCEDURE: Under satisfactory general anesthesia, the patient in lithotomy position, the genitalia were prepped and draped in usual sterile fashion. I observed a vaginal prolapse. Cystoscope was introduced under vision and cystoscopy was essentially normal. Clear efflux bilaterally equal. Using the Foroblique lens, I dilated the right ureteral orifice intramural portion to accommodate a 6.9-Ukrainian semirigid ureteroscope. This was passed all the way to the proximal ureter, no stone was observed up and down the ureter. I injected contrast. There was no filling defect. I backed up the ureteroscope all the way down to the UV junction, injected more contrast. No filling defect and complete emptying (s/l fast of the) ureter upon withdrawal of the ureteroscope. I removed the ureteroscope, reinserted the cystoscope and emptied the bladder. The patient tolerated the procedure and anesthesia well and was sent to recovery room in stable condition. Job ID: [id number] Dictated Date: 11/22/2016 12:54:58 Gut Dropper Date: 11/22/2016 16:44:59 / lópez
== END 2016-11-22 14:48 | disposition home or self-care (01) ==
LOC: SDC 10:06
PROVIDERS: ATTEND Urology
DX: N20.1 Calculus of ureter (principal); N81.10 Cystocele, unspecified; J45.909 Unspecified asthma, uncomplicated; Z79.899 Other long term (current) drug therapy
CPT/HCPCS: 84703; 87081

== ENCOUNTER → 2017-08-22 | Outpatient (CLI) | payer OTHER ==
[~2017-08-22] MED LIST changes: +ACHD5005 PO; -HYDR-3812 PO
--- NOTE | 2017-08-22 11:10 | Diagnostic Imaging Report ---
INDICATION: Dyspnea for 5 days. TIME OF EXAMINATION: 11:22 AM. COMPARISON: 07/14/2012. FINDINGS: The heart size is normal. The pulmonary vascularity is unremarkable. The lungs are clear. No infiltrate, effusion, or pneumothorax is detected. IMPRESSION: No acute cardiopulmonary process is detected. Dictated by: Dictated on workstation # [id number]
== END ==
LOC: RAD 10:52
PROVIDERS: ATTEND Nurse Practitioner Family
DX: R06.00 Dyspnea, unspecified (principal)
CPT/HCPCS: 71046

== ENCOUNTER 2018-09-28 23:17 | Emergency (ER) | payer OTHER ==
[~2018-09-28] VITALS: Ht 152.4 cm; Wt 70.3 kg
[2018-09-28] MEDS ORDERED: TOPI25TA10 (23:28)
[2018-09-28] MEDS ORDERED: FLUO20CA25 (23:28)
[2018-09-28] MEDS ORDERED: FAMOTIDINE 20 MG (PEPCID) TABLET PO STA (23:43)
[2018-09-28] MEDS ORDERED: predniSONE 20 MG TAB PO ONE (23:45)
--- NOTE | 2018-09-28 23:50 | ED Integumentary General ---
General Chief Complaint: Allergic Reaction Stated Complaint: HIVES Nursing Triage Note: intermittant hives Source: patient Exam Limitations: no limitations History of Present Illness Date Seen by Provider: September 28, 2018 Time Seen by Provider: 23:35 Initial Comments Here with report of hives. These have been intermittent over the last 10 days. She notes then more after she is been sleeping. She denies any new lotions, soaps or creams. No new medications. She has seen her doctor for this and was found that she has pollen allergies as well as dust/dander allergies. She did take a Benadryl earlier tonight and that has helped the hives a little bit although still has them on her arms and legs and to a much lesser scan on her lower torso. Denies breathing problems, tongue swelling, throat itching or abdominal pain/cramping. Timing/Duration: this evening Severity: mild Location: torso, extremities Possible Cause: no cause identified Modifying Factors: improves with antihistamine Associated Symptoms: hives Allergies and Home Medications Allergies Coded Allergies: amoxicillin (Verified Allergy, Unknown, PATIENT HAS RECEIVED CEPHALEXIN IN THE PAST, 11/22/16) clavulanic acid (Verified Allergy, Unknown, 11/21/16) dimenhydrinate (Verified Allergy, Unknown, 11/21/16) ondansetron (Verified Allergy, Unknown, 11/21/16) sulfacetamide (Verified Allergy, Unknown, 11/21/16) Home Medications Fluticasone Propionate 250 Mcg Blst.w.dev, 250 MCG IH BID, (Reported) Levalbuterol Tartrate 15 Gm Hfa.aer.ad, 15 GM IH PRN, (Reported) Patient Home Medication List Home Medication List Reviewed: Yes Review of Systems Review of Systems Constitutional: see HPI; No chills, No fever EENTM: no symptoms reported Respiratory: no symptoms reported Cardiovascular: no symptoms reported Gastrointestinal: No abdominal pain, No nausea, No vomiting Skin: see HPI, pruritus, rash Past Sljwbay-Lepdss-Bcjuth Hx Past Med/Social Hx: Reviewed Nursing Past Med/Soc Hx Patient Social History Alcohol Use: Denies Use Recreational Drug Use: No Smoking Status: Never a Smoker 2nd Hand Smoke Exposure: No Recent Foreign Travel: No Contact w/Someone Who Travel: No Recent Infectious Disease Expo: No Recent Hopitalizations: No Immunizations Up To Date Date of Pneumonia Vaccine: Feb 19, 2016 Date of Influenza Vaccine: Feb 19, 2016 Seasonal Allergies Seasonal Allergies: Yes Past Medical History Surgeries: No Respiratory: Yes Asthma Cardiac: No Neurological: No : No Last Menstrual Period: September 14, 2018 Reproductive Disorders: No Female Reproductive Disorders: Denies Sexually Transmitted Disease: No HIV/AIDS: No Genitourinary: No Kidney Stones Gastrointestinal: No Musculoskeletal: No Endocrine: No HEENT: No Loss of Vision: Bilateral Hearing Impairment: Denies Cancer: No Psychosocial: Yes Anxiety, Depression Integumentary: No Blood Disorders: Yes (HX ANEMIA) Adverse Reaction/Blood Tranf: No (N/A) Family Medical History Reviewed Nursing Family Hx Physical Exam Vital Signs Vital Signs - First Documented 09/28/18 23:22 Temp 97.4 Pulse 63 Resp 18 B/P (MAP) 124/79 (94) Pulse Ox 100 O2 Delivery Room Air Capillary Refill : Less Than 3 Seconds General Appearance: WD/WN, no apparent distress HEENT: PERRL/EOMI, pharynx normal Neck: full range of motion, supple Cardiovascular: regular rate, rhythm, no murmur Respiratory: lungs clear, normal breath sounds Gastrointestinal: normal bowel sounds, non tender, soft Skin: warm/dry Skin Problem Location: upper extremities, torso, lower extremities Skin Problem Character: urticarial Progress/Results/Core Measures Results/Orders My Orders Orders - JENNIFER MAO MD Prednisone Tablet (Deltasone Tablet) (09/28/18 23:45) Famotidine Tablet (Pepcid Tablet) (09/28/18 23:43) Vital Signs/I&O 09/28/18 23:22 Temp 97.4 Pulse 63 Resp 18 B/P (MAP) 124/79 (94) Pulse Ox 100 O2 Delivery Room Air Blood Pressure Mean: 94 Progress Progress Note : Progress Note Seen and evaluated. Hives noted. Pepcid 20 mg by mouth and prednisone 40 mg by mouth ordered. She states that the hives were improving with the Benadryl that she had taken. Discharged home with return precautions. Patient verbalized understanding instructions and agreement with plan. Departure Impression Primary Impression: Urticaria of unknown origin Disposition: 01 HOME, SELF-CARE Condition: Stable Departure-Patient Inst. Decision time for Depature: 23:51 Referrals: ADRIENNE JEWELL MD (PCP) Primary Care Physician JOANNA CABRERA APRN (Family) Primary Care Physician Patient Instructions: Hives (DC) Add. Discharge Instructions: All discharge instructions reviewed with patient and/or family. Voiced understanding. You may take Pepcid or the generic fluttering 20 mg once or twice a day as needed over the next few days for the hives. You may take Benadryl or the ge neric diphenhydramine every 6 hours as needed for itching. You may also take cawc-srp-ownxsvk loratadine (Claritin) or fexofenadine (Darling) for allergies per package directions. Take other medications as directed. Follow-up with your Dr. in a few days for recheck. Return for worse hives, breathing problems, throat itching, tongue swelling, abdominal cramping or discomfort or other concerns as needed. Scripts Prednisone (Prednisone) 20 Mg Tab 40 MG PO DAILY, #8 TAB 0 Refills Prov: JENNIFER MAO MD 09/28/18 Copy Copies To 1: ADRIENNE JEWELL MD, TIMOTHY D MD September 28, 2018 23:50
[2018-09-28] MEDS ORDERED: PRD20T PO (23:53)
[2018-09-28 23:58] VITALS: BP 124/79
== END 2018-09-28 23:56 | disposition home or self-care (01) ==
LOC: EDUNIT# 23:17 → ER 23:20
DX: L50.9 Urticaria, unspecified (principal); J45.909 Unspecified asthma, uncomplicated; F41.9 Anxiety disorder, unspecified; F32.9 Major depressive disorder, single episode, unspecified; D64.9 Anemia, unspecified; Z87.442 Personal history of urinary calculi; Z88.0 Allergy status to penicillin; Z88.8 Allergy status to other drugs, medicaments and biological substances; Z88.2 Allergy status to sulfonamides
CPT/HCPCS: 99283